=== PATIENT | male | born 1940 | race Caucasian/White ===

== ENCOUNTER → 2019-08-07 | Outpatient (CLI) | payer MEDICARE ==
--- NOTE | 2019-08-07 11:10 | MR ---
EXAMINATION TYPE: MR cervical spine wo con DATE OF EXAM: 08/07/2019 COMPARISON: None HISTORY: cervical disc degeneration TECHNIQUE: Multiplanar, multisequence images of the cervical spine were acquired. 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 C3-C4: Severe degenerative disc disease with broad-based disc herniation anterior compression of the spinal cord and significant canal stenosis. Facet arthropathy and uncovertebral joint hypertrophy con tribute to bilateral foraminal encroachment. C4-C5: Severe degenerative disc disease with broad-based disc protrusion encroaching upon the anterio r margin the spinal cord resulting in moderate canal stenosis. Facet arthropathy and uncovertebral jordin int hypertrophy greater on the right with moderate to severe right-sided foraminal encroachment. C5-C6: Central and right paracentral disc bulging with mild impression of thecal sac and mild central stenosis. Uncovertebral joint hypertrophy and facet arthropathy with mild bilateral foraminal encroa chment. C6-C7: Degenerative disc disease with broad-based central disc protrusion and mild effacement of thec al sac. There is encroachment upon the anterior margin the spinal cord but no displacement. Mild bila teral foraminal encroachment with uncovertebral joint hypertrophy greater on the left. Mild facet art hropathy. C7-T1: Broad-based central disc bulging greater paracentrally to left. Neural foramina patent. No Can al stenosis. Cervical segments are intact. There is normal alignment. Cervical spinal cord is of normal signal. Craniovertebral junction relationships are within normal limits. Subcentimeter thyroid nodules inci dentally noted. Shotty adenopathy in the soft tissues of the right neck. IMPRESSION: 1. Multilevel severe degenerative disc disease with facet arthropathy and multilevel canal stenosis. 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 This should be taken int o account prior to any surgical intervention. At the presumed C3-C4, C4-5, C5-6 and C6-C7 there is ce ntral disc herniations or protrusions with hypertrophic changes resulting in canal stenosis as discus sed above.
== END ==
LOC: RADMRIMAIN 09:05
PROVIDERS: ATTEND Internal Medicine Rheumatology
DX: M48.02 Spinal stenosis, cervical region (principal); M50.323 Other cervical disc degeneration at C6-C7 level; M46.92 Unspecified inflammatory spondylopathy, cervical region
CPT/HCPCS: 72141

== ENCOUNTER → 2019-08-14 | Outpatient (CLI) | payer MEDICARE ==
--- NOTE | 2019-08-14 20:17 | XR ---
EXAMINATION TYPE: XR bone survey complete DATE OF EXAM: 08/14/2019 COMPARISON: NONE HISTORY: Monoclonal gammopathy Frontal view of the chest, frontal and lateral views of the spine, frontal views of the proximal uppe r and lower extremities, 2 views of the calvarium submitted with a frontal view of the pelvis on a to alfonzo of 16 images Degenerative disc changes are noted in the visualized spine, facet arthropathy noted in the lumbar sp ine. There is a levoscoliosis centered at the mid lumbar spine, spinal curvature also noted in the th oracic spine. Bone mineralization is reduced which could limit sensitivity. Chest shows no acute card iopulmonary disease. Heart size may be slightly accentuated by rotation. No evident lytic lesions to suggest multiple myeloma. Chondrocalcinosis noted within the femoral head s. IMPRESSION: Osteopenia, degenerative disc disease and spinal curvature and additional findings above.
== END | disposition home or self-care (01) ==
LOC: RADXRMAIN 16:26
PROVIDERS: ATTEND Internal Medicine Hematology & Oncology
DX: M12.9 Arthropathy, unspecified (principal); M85.80 Other specified disorders of bone density and structure, unspecified site; M51.36 Other intervertebral disc degeneration, lumbar region; M46.96 Unspecified inflammatory spondylopathy, lumbar region; M41.86 Other forms of scoliosis, lumbar region; M11.259 Other chondrocalcinosis, unspecified hip; D47.2 Monoclonal gammopathy; N42.89 Other specified disorders of prostate
CPT/HCPCS: 77075

== ENCOUNTER → 2020-02-11 | Outpatient (CLI) | payer MEDICARE ==
[~2020-02-11] MED LIST: REGADENOSON 0.4 MG/5 ML SYRINGE IV ONE
--- NOTE | 2020-02-11 10:36 | NM ---
EXAMINATION TYPE: NM stress lexiscan cardiolite DATE OF EXAM: 02/11/2020 COMPARISON: NONE HISTORY: Abnormal EKG TECHNIQUE: After the intravenous administration of 9.45 mCi Tc 99m Sestamibi - Cardiolite resting SP ECT images acquired 50 minutes post injection. The patient received 0.4mg Lexiscan, 27 mCi Tc 99m Sestamibi - Stress images obtained 35 minutes post injection FINDINGS: Review of stress and rest SPECT images demonstrates no distinct perfusion abnormality. Gated analysi s shows normal wall motion with an estimated left ventricular ejection fraction of 64 %. IMPRESSION: No scintigraphic evidence for reversible ischemia.
--- NOTE | 2020-02-11 13:01 | EST ---
EXERCISE STRESS AGE: 79 SEX: M HT: 68" WT: 132 PROTOCOL: Lexiscan Cardiolite STAGE: DURATION OF EXERCISE: HEART RATE REST: 84 BLOOD PRESSURE REST: 142/76 MAXIMUM HEART RATE ACHIEVED: 99 MAXIMUM BLOOD PRESSURE: 162/87 85% MPHR: 119 100% MPHR: 146 METS: INDICATION: Preop cardiac evaluation. Baseline EKG shows sinus rhythm with nonspecific ST-T wave changes. Patient was given intravenous Lexiscan as per protocol. Did not have chest pain or diagnostic ST-segment depression. CONCLUSION: 1. Inconclusive EKG part of the stress test due to baseline EKG abnormalities. 2. Cardiolite portion of the stress test will be reported separately. MMODL / IJN: [id number] /
== END | disposition home or self-care (01) ==
LOC: RADNMMAIN 07:38
PROVIDERS: ATTEND Family Medicine
DX: R94.31 Abnormal electrocardiogram [ECG] [EKG] (principal)
CPT/HCPCS: 93017; 78452; A9500; J2785

== ENCOUNTER → 2020-03-17 | Outpatient (CLI) | payer MEDICARE ==
--- NOTE | 2020-03-18 14:15 | XR ---
Cervical spine HISTORY: Pain, cervical laminectomy 3 views of the cervical spine. Correlation MR cervical spine 08/07/2019 Mineralization is reduced. Multilevel spondylosis is present. Loss of disc height is present at inter vertebral levels. There is near anatomic alignment. Multilevel facet arthropathy changes present. Barraza inectomy changes are present at C3 and C4. Prevertebral soft tissues are within normal limits. C7-T1 not seen. Odontoid view is limited. IMPRESSION: Degenerative disc disease, osteopenia, facet arthropathy and postop changes. Neurosurgica l follow-up.
== END | disposition home or self-care (01) ==
LOC: RADXRMAIN 11:09
DX: M50.30 Other cervical disc degeneration, unspecified cervical region (principal); M47.812 Spondylosis without myelopathy or radiculopathy, cervical region; M85.80 Other specified disorders of bone density and structure, unspecified site; Z98.890 Other specified postprocedural states
CPT/HCPCS: 72040

== ENCOUNTER → 2020-04-01 | Outpatient (CLI) | payer MEDICARE ==
[2020-04-01 14:12] LABS: African American GFR (CKD) >90 (>60 ml/min/1.73 sqM); Blood Urea Nitrogen 18 mg/dL (9-20); Non-African American GFR(CKD) >90 (>60 ml/min/1.73 sqM)
--- NOTE | 2020-04-01 16:50 | CT ---
EXAMINATION TYPE: CT ChestAbdPelvis w con DATE OF EXAM: 04/01/2020 COMPARISON: None HISTORY: Abnormal weight loss. CT DLP: 495.2 mGycm Automated exposure control for dose reduction was used. CONTRAST: CT scan of the chest, abdomen and pelvis is performed with Oral Contrast and with IV Contrast, patien t injected with 100ml mL of Isovue 300. FINDINGS: LUNGS: The lungs are grossly clear, there is no concerning parenchymal mass or nodule identified. T here is no pleural effusion or pneumothorax seen. The tracheobronchial tree is patent. MEDIASTINUM: There are no greater than 1 cm hilar or mediastinal lymph nodes. No pericardial effusi on is seen. AORTA: Root of the aorta measures 4.1 cm, ascending aorta is 3.8 cm, proximal descending aorta 2.7 c m OTHER: Low dense focus noted within the right thyroid gland. LIVER/GB: No significant abnormality is appreciated. PANCREAS: No significant abnormality is seen. SPLEEN: No significant abnormality is seen. ADRENALS: No significant abnormality is seen. KIDNEYS: Low dense focus within the left kidney likely represents cortical cyst and is only approxima tely 1 cm in size. REPRODUCTIVE ORGANS: Prostate is enlarged and shows associated calcification. BOWEL: Colon shows wall thickening in the sigmoid, there is diverticular change, difficult to exclud e a mucosal lesion. Contrast has not coursed through the colon or proximal small bowel FREE AIR: No Free Air visible. ASCITES: None seen. RETROPERITONEAL ADENOPATHY: No retroperitoneal adenopathy is seen. LYMPH NODES: No greater than 1 cm abdominal or pelvic lymph nodes are appreciated. URINARY BLADDER: Thickening of the urinary bladder wall could be due to lack of distention or chroni c outlet obstruction, correlate to exclude cystitis. PELVIC ADENOPATHY: None visualized. OSSEOUS STRUCTURES: There is a spinal curvature present, degenerative disc changes are present visua lized spine, facet arthropathy noted especially in the lumbar spine.. 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 Indeterminate hypodensity right lobe of thyroid may represent thyroid nodule. Probable diverticulosis, difficult to exclude mucosal lesion. Prostate enla rgement as described
== END | disposition home or self-care (01) ==
LOC: RADCTMAIN 13:28
DX: N40.0 Benign prostatic hyperplasia without lower urinary tract symptoms (principal); R63.4 Abnormal weight loss
CPT/HCPCS: 82565; 84520; 71260; 74177; 36415; Q9967

== ENCOUNTER 2020-04-08 09:09 | Day surgery (SDC) | payer MEDICARE ==
[2020-04-04 09:55] VITALS: BMI 19.0
[~2020-04-08 09:09] MED LIST changes: +LACTATED RINGERS 1,000 ML IV SCH; -REGADENOSON 0.4 MG/5 ML SYRINGE IV ONE
[2020-04-08 09:40] VITALS: TEMP 97.2
[2020-04-08] MEDS ORDERED: PROPOFOL 10 MG/ML 20 ML VIAL IV ONE (10:16)
[2020-04-08 10:54] VITALS: RESP 16
--- NOTE | 2020-04-08 10:54 | P.PCN ---
Date of Procedure: 04/08/20 Description of Procedure: BRIEF HISTORY: Patient is a 79-year-old male presents for outpatient colonoscopy for evaluation of abnormal computed tomography scan abdomen. Patient had computed tomography scan of the abdomen in evaluation of unintentional weight loss. This was significant for thickening in the sigmoid colon with colonic mass, ruled out. PROCEDURE PERFORMED: Colonoscopy with polypectomy. PREOPERATIVE DIAGNOSIS: Abnormal computed tomography scan abdomen, last colonoscopy over 5 years ago. ESTIMATED BLOOD LOSS: Minimal. IV sedation per Anesthesia. PROCEDURE: After informed consent was obtained, the patient, was brought into the endoscopy unit. IV sedation was administered by Anesthesia under continuous monitoring. Digital rectal examination was normal. Initially the Olympus CF-190 flexible video colonoscope was then inserted in the rectum, gradually advanced into the cecum without any difficulty. Careful examination was performed as the scope was gradually being withdrawn. Ileocecal valve and the appendiceal orifice were visualized and appeared normal. Prep was excellent. Mucosa of the cecum, ascending colon, transverse colon, descending colon, sigmoid colon, and rectum appeared normal. 2 diminutive colon polyps measuring 1-2 mm in length were removed with cold forcep polypectomy from the descending colon and sigmoid colon. The terminal ileum was intubated and appeared normal. The patient had multiple small and large mouth diverticula in the sigmoid colon with associated tissue hypertrophy and thickening. No masses were noted. Retroflexion was performed in the rectum and no lesions were seen, low-grade internal hemorrhoids. The patient tolerated the procedure well. IMPRESSION: No colonic masses noted from rectum to cecum. 2 diminutive polyps removed from the descending colon and sigmoid colon with cold forceps. Severe moderate diverticulosis. Low-grade internal hemorrhoids. RECOMMENDATIONS: Findings of this examination were discussed with the patient. Okay to resume diet. Okay to resume medications. Await pathology from polypectomies. Continue further medical evaluation per primary team.
[2020-04-08] MEDS ORDERED: PROMETHAZINE INJ 6.25 MG in SODIUM CHLORIDE 0.9% 50 ML IVPB ONE (11:45)
[2020-04-08 11:52] VITALS: BP 146/83; PULSE 85
== END 2020-04-08 12:20 | disposition home or self-care (01) ==
LOC: ORWHC2ENDO 09:09
PROVIDERS: ATTEND Internal Medicine
DX: D12.5 Benign neoplasm of sigmoid colon (principal); D12.4 Benign neoplasm of descending colon; K57.30 Diverticulosis of large intestine without perforation or abscess without bleeding; K64.8 Other hemorrhoids; R63.4 Abnormal weight loss; Z87.891 Personal history of nicotine dependence; Z79.891 Long term (current) use of opiate analgesic; Z79.899 Other long term (current) drug therapy; Z98.890 Other specified postprocedural states; Z90.89 Acquired absence of other organs
CPT/HCPCS: 88305; 45380; J2704

== ENCOUNTER → 2020-04-17 | Outpatient (CLI) | payer MEDICARE ==
--- NOTE | 2020-04-17 23:34 | US ---
EXAMINATION TYPE: US thyroid st tissue head/neck DATE OF EXAM: 04/17/2020 COMPARISON: None CLINICAL HISTORY: 79-year-old male E04.1 Thyriod Nodule. Follow-up thyroid nodules TECHNIQUE: Multiple sonographic images of the thyroid gland are obtained. FINDINGS: GLAND SIZE: Right Lobe: 3.8 x 2.3 x 2.3 cm Overall Parenchyma: homogenous Left Lobe: 3.6 x 1.9 x 1.4 cm Overall Parenchyma: homogeneous Isthmus Thickness: 0.5 cm NODULES RIGHT: # of nodules measured on right: 1 1. 1.4 X 1.1 x 1.5 cm hypoechoic nodule at the mid pole with well-defined margins. This nodule is taller than wide and shows intranodular vascularity. Prior size: No prior LEFT: # of nodules measured on left: 1 1. 1.4 X 1.1 x 1.1 cm echogenic nodule at the upper pole with well-defined margins. This nodule is wide as tall and shows intranodular vascularity. Prior size: No prior ISTHMUS: # of nodules measured in the isthmus: 0 Bilateral neck scanned, no evidence of lymphadenopathy. IMPRESSION: 1. A taller than wide 1.5 cm solid nodule at the right midpole. FNA can be considered. 2. An additional solid vascular 1.4 cm nodule at the left upper pole. Follow up versus FNA.
== END | disposition home or self-care (01) ==
LOC: RADUSWWP 15:39
PROVIDERS: ATTEND Family Medicine
DX: E04.2 Nontoxic multinodular goiter (principal)
CPT/HCPCS: 76536

== ENCOUNTER → 2020-09-11 | Outpatient (CLI) | payer MEDICARE ==
--- NOTE | 2020-09-11 12:57 | CT ---
EXAMINATION TYPE: CT chest wo con DATE OF EXAM: 09/11/2020 COMPARISON: 04/01/2020 HISTORY: Thoracic aortic aneurysm, without rupture CT DLP: 178.5 mGycm. Automated Exposure Control for Dose Reduction was Utilized. TECHNIQUE: CT scan of the thorax is performed without IV contrast. FINDINGS: LUNGS: The lungs are grossly clear. There is no pleural effusion or pneumothorax seen. The tracheo bronchial tree is patent. Basilar bronchiectasis stable. 2 mm nodule peripheral margin right middle l obe axial image 35. Postinflammatory too small to characterize. Retrospectively stable. Likely benign . MEDIASTINUM: Lack of IV contrast is noted to limit evaluation for mediastinal and especially hilar ad enopathy. There are no definitive greater than 1 cm hilar or mediastinal lymph nodes. Root of the a liz measures 4.2 cm, ascending aorta is 3.8 cm, proximal descending aorta 2.7 cm . Global cardiomega ly again noted with the coronary artery calcification. OTHER: Hypertrophic and degenerative change of the spine. There are 2 less than 5 mm left renal calcu li which appear nonobstructing. There are numerous shotty lymph nodes within the left axilla which sh ould be correlated with an appear to be grossly similar in appearance to the prior exam is stable [facility] low density right thyroid nodule. IMPRESSION: 1. Minimal change in the ascending aortic aneurysm measuring 4.2 cm in greatest dimension and previou sly measuring 4.1 cm. 2. Coronary artery atherosclerotic changes. 3. Nonobstructing left renal calculi. 4. Extensive nonpathologic sized shotty adenopathy in the axilla on the left similar appearance to th e prior exam correlate clinically. 5. There is a 2 mm right middle lobe nodule axial image 35 stable from prior exam.
== END | disposition home or self-care (01) ==
LOC: RADCTMAIN 12:23
PROVIDERS: ATTEND Family Medicine
DX: I71.2 Thoracic aortic aneurysm, without rupture (principal); I25.10 Atherosclerotic heart disease of native coronary artery without angina pectoris; R59.9 Enlarged lymph nodes, unspecified; R91.1 Solitary pulmonary nodule
CPT/HCPCS: 71250

== ENCOUNTER → 2020-11-20 | Outpatient (CLI) | payer MEDICARE ==
--- NOTE | 2020-11-20 15:53 | US ---
EXAMINATION TYPE: US thyroid st tissue head/neck DATE OF EXAM: 11/20/2020 COMPARISON: NONE CLINICAL HISTORY: C73 Malignant neoplasm of thyroid gland. Right neck: 1.5 x 0.7 x 1.7cm lymph node seen lateral inferior to right thyroid lobe this is not enl arged by measurement criteria but appears to have a thickened cortex. Consider additional workup with CT neck. Left neck: appears wnl Patient status post thyroidectomy. No recurrent masses within the thyroid that are evident. IMPRESSION: 1. Somewhat prominent lymph node right lateral neck. Considers CT soft tissue neck for additional ambar luation. 2. No recurrent masses within the thyroid bed
== END ==
LOC: RADUSWWP 15:00
PROVIDERS: ATTEND Surgery
DX: R59.0 Localized enlarged lymph nodes (principal)
CPT/HCPCS: 76536

== ENCOUNTER → 2021-02-04 | Outpatient (CLI) | payer MEDICARE | END | disposition home or self-care (01) | LOC: LABWHC1 15:10 | PROVIDERS: ATTEND Internal Medicine Endocrinology, Diabetes & Metabolism | DX: C73 Malignant neoplasm of thyroid gland (principal) | CPT/HCPCS: 36415; 84432; 84443; 86800 ==

== ENCOUNTER → 2021-03-25 | Outpatient (CLI) | payer MEDICARE ==
[2021-03-25 21:19] LABS: Hemoglobin A1C 5.4 % (4.0-6.0)
== END | disposition home or self-care (01) ==
LOC: LABWHC1 12:41
PROVIDERS: ATTEND Family Medicine
DX: Z00.00 Encounter for general adult medical examination without abnormal findings (principal); Z79.899 Other long term (current) drug therapy
CPT/HCPCS: 36415; 83036; 83735

== ENCOUNTER → 2021-03-25 | Outpatient (CLI) | payer MEDICARE ==
[2021-03-25 13:54] LABS: Basophils # (A) 0.1 k/uL (0-0.2); Basophils % (A) 1 %; Eosinophils # (A) 0.2 k/uL (0-0.7); Eosinophils % (A) 4 %; HCT 35.8 % (39.0-53.0); HGB 10.7 gm/dL (13.0-17.5); Hypochromasia Moderate; Lymphocytes # (A) 1.4 k/uL (1.0-4.8); Lymphocytes % (A) 22 %; MCH 25.6 pg (25.0-35.0); MCHC 29.7 g/dL (31.0-37.0); MCV 86.1 fL (80.0-100.0); Monocytes # (A) 0.5 k/uL (0-1.0); Monocytes % (A) 7 %; Neutrophils # (A) 4.1 k/uL (1.3-7.7); Neutrophils % (A) 63 %; Platelet Count 345 k/uL (150-450); RBC 4.16 m/uL (4.30-5.90); RDW 15.8 % (11.5-15.5); WBC 6.5 k/uL (3.8-10.6)
[2021-03-25 14:01] LABS: Appearance,Urine Cloudy (Clear); Bilirubin,Urine Negative (Negative); Blood,Urine Moderate (Negative); Color,Urine Yellow; Glucose,Urine (UA) Negative (Negative); Hyaline Casts,Urine 3 /lpf (0-2); Ketones,Urine Negative (Negative); Leukocyte Esterase,Urine Large (Negative); Mucus,Urine Occasional /hpf; Nitrite,Urine Negative (Negative); Protein,Urine Trace (Negative); RBC,Urine 9 /hpf (0-5); Specific Gravity,Urine 1.021 (1.001-1.035); Squamous Epithelial Cell,Urine <1 /hpf (0-4); Urobilinogen,Urine <2.0 mg/dL (<2.0); WBC,Urine 108 /hpf (0-5)
[2021-03-25 14:03] LABS: INR 1.1 (<1.2); Partial Thromboplastin Time 29.2 sec (22.0-30.0); Prothrombin Time 11.4 sec (9.0-12.0)
[2021-03-25 14:17] LABS: ALT 14 U/L (4-49); AST 18 U/L (17-59); African American GFR (CKD) >90 (>60 ml/min/1.73 sqM); Albumin 3.5 g/dL (3.5-5.0); Alkaline Phosphatase 89 U/L (38-126); Anion Gap 6 mmol/L; Blood Urea Nitrogen 16 mg/dL (9-20); Calcium 8.7 mg/dL (8.4-10.2); Carbon Dioxide 28 mmol/L (22-30); Chloride 103 mmol/L (98-107); Glucose 132 mg/dL (74-99); Non-African American GFR(CKD) >90 (>60 ml/min/1.73 sqM); Potassium 4.4 mmol/L (3.5-5.1); Sodium 137 mmol/L (137-145); Total Bilirubin 0.5 mg/dL (0.2-1.3)
== END | disposition home or self-care (01) ==
LOC: LABPAT 12:37
PROVIDERS: ATTEND Orthopaedic Surgery
DX: Z01.812 Encounter for preprocedural laboratory examination (principal); N39.0 Urinary tract infection, site not specified
CPT/HCPCS: 80053; 81001; 85025; 85610; 85730; 87070; 87086

== ENCOUNTER → 2021-03-26 | Outpatient (CLI) | payer MEDICARE ==
[2021-03-27 01:15] LABS: Chol/HDL Ratio 3.73
== END | disposition home or self-care (01) ==
LOC: LABWHC1 10:40
PROVIDERS: ATTEND Family Medicine
DX: Z00.00 Encounter for general adult medical examination without abnormal findings (principal); Z79.899 Other long term (current) drug therapy
CPT/HCPCS: 36415; 80061

== ENCOUNTER 2021-03-30 04:09 | Emergency (ER) | payer MEDICARE ==
[2021-03-30 04:37] VITALS: BP 146/87; PULSE 88; RESP 18; TEMP 98.2
--- NOTE | 2021-03-30 04:57 | XR ---
EXAMINATION TYPE: XR Hip RT and AP Pelvis DATE OF EXAM: 03/30/2021 COMPARISON: NONE HISTORY: Fall. Pain. TECHNIQUE: 3 views FINDINGS: The pelvic ring is intact. Proximal right femur and hip joint appear normal. There is no si gn of hip dysplasia. Sacroiliac joints are intact. IMPRESSION: No acute abnormality of the pelvis and right hip.
--- NOTE | 2021-03-30 05:11 | ED ---
Fall HPI - General Chief Complaint: Fall Stated Complaint: Hip Pain Time Seen by Provider: 03/30/21 04:39 Source: patient Mode of arrival: wheelchair - History of Present Illness Initial Comments: This patient is an 80-year-old man who presents to be evaluated after he had a fall. Patient states that he was going up a step, his foot caught on it, and he fell landing on his right hip. Following that he had sharp pain when you try to get up or when he tried to move his right leg. Patient denies other injury. No head, neck, chest, back or abdomen pain. 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 Place Fall Occurred: home Loss of Consciousness: none Prolonged Down Time?: no Location - Extremities: Right: Leg Severity: moderate Quality: sharp Context: tripped/slipped Associated Symptoms: unable to walk - Related Data Home Medications Medication Instructions Recorded Confirmed Dutasteride [Avodart] 0.5 mg PO DAILY 04/04/20 04/04/20 Gabapentin [Neurontin] 300 mg PO HS 04/04/20 04/04/20 HYDROcodone/APAP 5-325MG [Red Jacket 1 tab PO Q6HR PRN 04/04/20 04/08/20 5-325] Multivitamins, Thera [Multivitamin 1 tab PO DAILY 04/04/20 04/04/20 (formulary)] methocarbamoL [Robaxin] 500 mg PO BID 04/04/20 04/04/20 Previous Rx's Medication Instructions Recorded HYDROcodone/APAP 5-325MG [Red [place]et 1 tab PO Q4HR PRN 3 Days #18 tab 03/30/21 5-325] Allergies Allergy/AdvReac Type Severity Reaction Status Date / Time No Known Allergies Allergy Verified 03/30/21 04:33 Review of Systems ROS Statement: Those systems with pertinent positive or pertinent negative responses have been documented in the HPI. ROS Other: All systems not noted in ROS Statement are negative. Constitutional: Denies: fever, chills Respiratory: Denies: cough, dyspnea Cardiovascular: Denies: chest pain, palpitations Gastrointestinal: Denies: abdominal pain, nausea, vomiting Genitourinary: Denies: hematuria Musculoskeletal: Reports: as per HPI, arthralgia. Denies: back pain Skin: Denies: rash Neurological: Denies: weakness, numbness, paresthesias Past Medical History Past Medical History: Osteoarthritis (OA), Prostate Disorder Additional Past Medical History / Comment(s): enlarged prostate, back pain History of Any Multi-Drug Resistant Organisms: None Reported Past Surgical History: Back Surgery, Orthopedic Surgery, Tonsillectomy Additional Past Surgical History / Comment(s): February 2020- back surgery to remove a piece of bone, [place] knee arthroscopy Past Anesthesia/Blood Transfusion Reactions: No Reported Reaction Past Psychological History: No Psychological Hx Reported Smoking Status: Never smoker Past Alcohol Use History: None Reported Past Drug Use History: None Reported - Past Family History Mother Family Medical History: No Reported History General Exam Limitations: physical limitation General appearance: alert, in no apparent distress Head exam: Present: atraumatic, normocephalic Eye exam: Present: normal appearance Respiratory exam: Present: normal lung sounds bilaterally. Absent: respiratory distress, wheezes, rales Cardiovascular Exam: Present: regular rate, normal rhythm, normal heart sounds GI/Abdominal exam: Present: soft. Absent: distended, tenderness, guarding, rebound Extremities exam: Present: normal inspection, tenderness, normal capillary refill. Absent: full ROM, pedal edema, calf tenderness Back exam: Present: normal inspection. Absent: CVA tenderness (R), CVA tenderness (L) Neurological exam: Present: alert Skin exam: Present: warm, dry, intact, normal color. Absent: rash Course Vital Signs 03/30/21 04:33 Temperature 98.2 F Pulse Rate 88 Respiratory 18 Rate Blood Pressure 146/87 O2 Sat by Pulse 99 Oximetry Disposition Clinical Impression: Fall, Fracture of pubic ramus Disposition: HOME SELF-CARE Condition: Good Instructions (If sedation given, give patient instructions): Fall Prevention (ED), Pelvic Fracture (ED) Prescriptions: HYDROcodone/APAP 5-325MG [Red Jacket 5-325] 1 tab PO Q4HR PRN 3 Days #18 tab PRN Reason: Pain Is patient prescribed a controlled substance at d/c from ED?: Yes When asked, does pt state using other controlled substances?: Yes If prescribed controlled substance>3 days was MAPS reviewed?: Prescribed <3 Days If opioid is for acute pain is fill amount 7 days or less?: Yes If Rx opioid, was Start Talking consent form obtained?: Yes Referrals: Luisa Ybarra MD [Primary Care Provider] - 1-2 days
--- NOTE | 2021-03-30 06:40 | CT ---
EXAMINATION TYPE: CT hip RT wo con DATE OF EXAM: 03/30/2021 COMPARISON: CT abdomen pelvis 04/01/2020 HISTORY: pain CT DLP: 365.8 mGycm Automated exposure control for dose reduction was used. Images were obtained from the mid ileum to the mid shaft of the femur without contrast. There is a hairline fracture of the right superior pubic ramus. There is oblique fracture minimal dis placement of the inferior pubic ramus on the right side. The acetabulum is intact. The proximal femur is intact. Hip joint space is fairly normal. I see no focal bone destruction. There is no evidence o f a soft tissue mass. Bladder distends smoothly. Prostate is enlarged and measures 5.7 cm. IMPRESSION: Nondisplaced acute fractures of the right superior and inferior pubic rami. No femur or acetabular fr acture seen.
== END 2021-03-30 07:15 | disposition home or self-care (01) ==
LOC: EC 04:09
DX: S32.511A Fracture of superior rim of right pubis, initial encounter for closed fracture (principal); S32.591A Other specified fracture of right pubis, initial encounter for closed fracture; N40.0 Benign prostatic hyperplasia without lower urinary tract symptoms; W01.0XXA Fall on same level from slipping, tripping and stumbling without subsequent striking against object, initial encounter; Y92.009 Unspecified place in unspecified non-institutional (private) residence as the place of occurrence of the external cause
CPT/HCPCS: 73502; 99284

== ENCOUNTER → 2021-04-30 | Outpatient (CLI) | payer MEDICARE | END | disposition home or self-care (01) | LOC: LABWHC1 14:51 | PROVIDERS: ATTEND Internal Medicine Endocrinology, Diabetes & Metabolism | DX: C73 Malignant neoplasm of thyroid gland (principal) | CPT/HCPCS: 36415; 84432; 84443; 86800 ==

== ENCOUNTER → 2021-06-19 | Outpatient (CLI) | payer MEDICARE | END | disposition home or self-care (01) | LOC: LABWHC1 15:59 | PROVIDERS: ATTEND Internal Medicine Endocrinology, Diabetes & Metabolism | DX: C73 Malignant neoplasm of thyroid gland (principal) | CPT/HCPCS: 36415; 84432; 84443; 86800 ==

== ENCOUNTER → 2021-07-16 | Outpatient (CLI) | payer MEDICARE ==
[2021-07-16 11:31] LABS: HCT 38.1 % (39.0-53.0); HGB 11.9 gm/dL (13.0-17.5); Hypochromasia Slight; MCH 26.5 pg (25.0-35.0); MCHC 31.3 g/dL (31.0-37.0); MCV 84.7 fL (80.0-100.0); Mean Platelet Volume 6.3; Platelet Count 333 k/uL (150-450); RDW 15.3 % (11.5-15.5); WBC 8.5 k/uL (3.8-10.6)
[2021-07-16 11:34] LABS: INR 1.1 (<1.2); Prothrombin Time 11.5 sec (9.0-12.0)
[2021-07-16 11:35] LABS: ALT 14 U/L (4-49); AST 18 U/L (17-59); African American GFR (CKD) >90 (>60 ml/min/1.73 sqM); Albumin 3.4 g/dL (3.5-5.0); Alkaline Phosphatase 96 U/L (38-126); Anion Gap 9 mmol/L; Blood Urea Nitrogen 17 mg/dL (9-20); Calcium 9.2 mg/dL (8.4-10.2); Carbon Dioxide 27 mmol/L (22-30); Chloride 104 mmol/L (98-107); Glucose 142 mg/dL (74-99); Non-African American GFR(CKD) 90 (>60 ml/min/1.73 sqM); Potassium 4.7 mmol/L (3.5-5.1); Sodium 140 mmol/L (137-145); Total Protein 7.4 g/dL (6.3-8.2)
[2021-07-16 12:08] LABS: Appearance,Urine Clear (Clear); Bacteria,Urine Rare /hpf; Bilirubin,Urine Negative (Negative); Blood,Urine Small (Negative); Color,Urine Yellow; Glucose,Urine (UA) Negative (Negative); Ketones,Urine Negative (Negative); Leukocyte Esterase,Urine Small (Negative); Mucus,Urine Occasional /hpf; Nitrite,Urine Negative (Negative); Protein,Urine Trace (Negative); RBC,Urine 3 /hpf (0-5); Specific Gravity,Urine 1.026 (1.001-1.035); Urobilinogen,Urine <2.0 mg/dL (<2.0); WBC,Urine 8 /hpf (0-5)
== END | disposition home or self-care (01) ==
LOC: LABPAT 10:10
PROVIDERS: ATTEND Orthopaedic Surgery
DX: Z01.812 Encounter for preprocedural laboratory examination (principal); M16.11 Unilateral primary osteoarthritis, right hip
CPT/HCPCS: 80053; 81001; 85027; 85610; 85730; 87070

== ENCOUNTER 2021-08-11 11:42 | Day surgery (SDC) | payer MEDICARE ==
[2021-08-06 15:36] VITALS: BMI 19.0
[~2021-08-11 11:42] MED LIST changes: +ACETAMINOPHEN TAB 500 MG TAB PO PRN; +GABAPENTIN 300 MG CAP PO PRN; +HYDROmorphone 0.5 MG/0.5 ML SYRINGE IVP PRN; +MELOXICAM 7.5 MG TAB PO PRN; +ONDANSETRON 4 MG/2 ML VIAL IVP ONE; +TRANEXAMIC ACID 1,000 MG in SODIUM CHLORIDE 0.9% 100 ML IVPB PRN
[2021-08-11] MEDS ORDERED: HYDROmorphone 0.5 MG/0.5 ML SYRINGE IVP PRN ×2 (12:32)
[2021-08-11] MEDS ORDERED: ONDANSETRON 4 MG/2 ML VIAL IVP PRN (12:32)
[2021-08-11] MEDS ORDERED: HYDROmorphone 0.2 MG/1 ML SYRINGE IVP PRN (12:32)
[2021-08-11] MEDS ORDERED: HYDROcodone/APAP 7.5-325MG 1 EACH TAB PO PRN ×2 (12:34)
[2021-08-11] MEDS ORDERED: SODIUM CHLORIDE 0.9% 1,000 ML IV SCH (12:45)
[2021-08-11] MEDS ORDERED: DEXAMETHASONE SOD PHOSPHATE 4 MG/ML 1 ML VIAL IVP ONE (12:45)
[2021-08-11] MEDS ORDERED: MIDAZOLAM 2 MG/2 ML VIAL IVP ONE (12:59)
[2021-08-11] MEDS ORDERED: ROCURONIUM 10 MG/ML (5 ML VIAL) IV ONE (13:47)
[2021-08-11] MEDS ORDERED: NEOSTIGMINE 1 MG/ML 10 ML VIAL ONE (13:47)
[2021-08-11] MEDS ORDERED: TRANEXAMIC ACID 1,000 MG/10 ML VIAL ONE (13:47)
[2021-08-11] MEDS ORDERED: GLYCOPYRROLATE 0.2 MG/ML 2 ML VIAL ONE (13:47)
[2021-08-11] MEDS ORDERED: PHENYLEPHRINE-0.9% NACL SYG 1,000 MCG/10 ML SYRINGE ONE (13:47)
[2021-08-11] MEDS ORDERED: ROPIVACAINE 5 MG/ML 30 ML VIAL ONE (13:47)
[2021-08-11] MEDS ORDERED: MIDAZOLAM 2 MG/2 ML VIAL ONE (13:47)
[2021-08-11] MEDS ORDERED: ePHEDrine 50 MG/ML 1 ML AMP ONE (13:47)
[2021-08-11] MEDS ORDERED: SUCCINYLCHOLINE CHLORIDE 100 MG/5 ML SYR IV ONE (13:47)
[2021-08-11] MEDS ORDERED: LIDOCAINE 1% INJ 10MG/ML (20 ML MDV) ONE (13:47)
[2021-08-11] MEDS ORDERED: SODIUM CHLORIDE 0.9% 100 ML BAG ONE (13:47)
[2021-08-11] MEDS ORDERED: PROPOFOL 10 MG/ML 20 ML VIAL IV ONE (13:47)
[2021-08-11] MEDS ORDERED: LACTATED RINGERS 1,000 ML IV ONE (15:03)
--- NOTE | 2021-08-11 15:05 | P.ANPRN ---
Procedure Note - Anesthesia - Nerve Block Performed Right Interscalene Single Time Out Performed: Yes ([id number]) Date of Procedure: 08/11/21 Procedure Start Time: 12:59 Procedure Stop Time: 13:04 Location of Patient: PreOp Indication: Acute Post-Operative Pain, Requested by Surgeon Specifically requested for management of pain by DrBrittany: Phill Zarate Sedation Type: Sedate with meaningful contact maintained Preparation: Sterile Prep Position: Supine Catheter: None Needle Types: Pajunk Needle Gauge: 21 Ultrasound used to visualize needle placement: Yes Ultrasound used to observe medication spread: Yes Injectate: 0.5% Ropivacaine (see comment for volume) (30cc) Blood Aspirated: No Pain Paresthesia on Injection Noted: No Resistance on Injection: Normal Image Stored and Saved: Yes Events: Uneventful and Well Tolerated
--- NOTE | 2021-08-11 15:07 | P.OP ---
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 Biomet comprehensive reverse shoulder system, humeral bearing, 36 mm, standard Biomet comprehensive reverse shoulder system, mini humeral tray, 40 mm, +0, standard Biomet comprehensive reverse shoulder, Glenosphere mini baseplate, 25 mm Biomet comprehensive reverse shoulder, central screw, 6.5 mm x 25 mm Biomet comprehensive reverse shoulder, fixed locking screw, 4.75 x 20 mm, 15 mm, 15 mm, 20 mm. Biomet comprehensive reverse shoulder glenosphere, 36 mm, standard All components were press-fit. Articulation is metal on polyethylene.Articulation is metal on polyethylene. Anesthesia: GETA Surgeon: Phill [employer] Director #1: Selene Majano Estimated Blood Loss (ml): 30 Pathology: other (Humeral head) Condition: stable Disposition: PACU Indications for Procedure: This is a patient that presented to my office with severe pain in the shoulder. X-rays demonstrated severe osteoarthritis of the glenohumeral joint of her shoulder. After failure of conservative treatment, we discussed the surgical and nonsurgical treatment options at length. The patient wishes to proceed with a reverse total shoulder arthroplasty. Patient is aware of the complications of the procedure which include but are not limited to infection, hardware failure, persistent pain, dislocation, and nerve injury. Informed consent was obtained. Operative Findings: The operative findings are consistent with severe osteoarthritis of the right shoulder with chronic rotator cuff deficiency Description of Procedure: The patient was seen in the preoperative area, consent was reviewed, and operative site was marked with a skin marker. Patient was then brought to the operating room and given preoperative antibiotics intravenously. Patient was also given 1 g of Tranexamic acid intravenously. A general anesthetic was administered by the anesthesia department. A Bee catheter was placed by the nursing staff. The patient was then placed in a beachchair position with the bony prominences well-padded and the head secured. The shoulder was then prepped and draped in the usual sterile fashion. A universal timeout was then performed, which confirmed the patient's name, surgical site, ALLERGIES, and consent. A standard deltopectoral approach was performed. The skin and subcutaneous tissue was sharply dissected down to the deltoid fascia. The cephalic vein was then identified and retracted medially. The deltopectoral interval was then utilized to expose the subscapularis tendon. A retractor was then placed under the coracobrachialis tendon retracted medially, and the deltoid. The axillary nerve is palpated and protected throughout the procedure. The subscapularis tendon was then released and retracted medially. The humeral head was then exposed easily. The rotator cuff tendon was found to be completely torn and retracted. After the humeral head was exposed, osteophytes were removed with a Ronguer. Next the humeral stem was prepared. A starter reamer was then placed through the humeral head along the axis of the humeral shaft just lateral to the articular surface and just medial to the rotator cuff attachment. Sequential reaming was performed to the appropriate size reamer was inserted to the #between the 3 and 4 on the reamer. Next the intramedullary resection guide was placed on the reamer shaft. It was placed to the appropriate resection depth and angle of 30 of retroversion. Resection guide block was then secured with Steinmann pins. The proximal humerus was then resected. The block was then removed and the humerus was then broached sequentially to the same size as the reamer. After the broaches fully seated, the broach handle was removed and a broach cover was placed protect the humerus while the glenoid was prepared. Next attention was directed to the glenoid. The appropriate retractors were placed around the glenoid and any remaining soft tissues was removed from around the glenoid. After the glenoid was adequately exposed, the threaded glenoid guide was placed onto the glenoid and a 3.2 mm Steinmann pin was inserted in the glenoid at the desired angle and position, ensuring the pin engaged medial cortical wall. Next, the cannulated baseplate reamer was placed over the top of the Steinmann pin. The glenoid was then reamed to the appropriate depth. The glenoid reamer was then removed, leaving the Steinmann pin. The glenoid Pepe king te implant was placed on the end of the cannulated baseplate impactor. The baseplate was then impacted fully into the glenoid. Next the 6.5 mm central screw was then placed which afforded excellent fixation. The 4 peripheral locking screws were then drilled measured and placed. Next the appropriate glenosphere was opened and impacted into the glenoid baseplate. Attention was then redirected to the humerus. Next a trial humeral tray was placed in the shoulder was reduced. Shoulder was taken through a full range of motion and found to be stable. The shoulder was then gently dislocated, and the trial humerus and humeral tray were removed. The final humeral stem was impacted in the final humeral tray was impacted as well. Shoulder was then relocated. Again the shoulder was taken through a range of motion and found to have no instability. Shoulder was then irrigated with pulsatile lavage. A second dose of 1 g of Tranexamic acid was given. The subcutaneous tissues were closed with 3-0 Vicryl followed by 3-0 strata fix. Exofin skin glue was placed on the skin. A sterile dressing was then applied, the patient was transported to the recovery room in an arm sling in stable condition. The pathology assistant GARCIA Morris was required due the complexity of surgery and the need for a skilled surgical specialist.
[2021-08-11 15:44] VITALS: RESP 16; TEMP 98
--- NOTE | 2021-08-11 16:04 | XR ---
EXAMINATION TYPE: XR shoulder limited RT DATE OF EXAM: 08/11/2021 COMPARISON: NONE TECHNIQUE: Two views submitted HISTORY: Post op FINDINGS: There is a prosthetic shoulder in near anatomic alignment. There is soft tissue edema and emphysema. IMPRESSION: 1. Postoperative change. Appears in near-anatomic alignment
[2021-08-11 17:16] VITALS: BP 119/61; PULSE 78
== END 2021-08-11 18:09 | disposition home or self-care (01) ==
LOC: OR 11:42
PROVIDERS: ATTEND Orthopaedic Surgery
DX: M75.101 Unspecified rotator cuff tear or rupture of right shoulder, not specified as traumatic (principal); M19.011 Primary osteoarthritis, right shoulder; N40.0 Benign prostatic hyperplasia without lower urinary tract symptoms; Z79.899 Other long term (current) drug therapy; Z85.850 Personal history of malignant neoplasm of thyroid
CPT/HCPCS: 64415; 76942; 87635; 73020; 23474; C1776; J2250; J1100; J0690; J2405; 88305; 88311

== ENCOUNTER → 2022-02-08 | Outpatient (CLI) | payer MEDICARE ==
--- NOTE | 2022-02-08 16:02 | US ---
EXAMINATION TYPE: US thyroid st tissue head/neck DATE OF EXAM: 02/08/2022 COMPARISON: 11/20/2020 CLINICAL HISTORY: 81-year-old male C73 MALIGNANT NEOPLASM OF THYROID GLAND. History of thyroid CA, pt states having thyroid removed approx 6 months ago Technique: Bilateral neck scan. FINDINGS: THE No evidence of lymphadenopathy. Bilateral thyroidectomy bed appeared wnl. IMPRESSION: The thyroid bed appears clear. No suspicious lymphadenopathy seen in the neck.
== END | disposition home or self-care (01) ==
LOC: RADUSWWP 15:42
PROVIDERS: ATTEND Internal Medicine Endocrinology, Diabetes & Metabolism
DX: C73 Malignant neoplasm of thyroid gland (principal)
CPT/HCPCS: 76536

== ENCOUNTER 2022-03-17 08:17 | Emergency (ER) | payer MEDICARE ==
[2022-03-17] MEDS ORDERED: ACETAMINOPHEN TAB 325 MG TAB PO STA (08:38)
--- NOTE | 2022-03-17 08:38 | ED ---
General Adult HPI - General Stated complaint: Wants COVID test Time Seen by Provider: 03/17/22 08:19 Source: patient, RN notes reviewed Mode of arrival: ambulatory Limitations: no limitations - History of Present Illness Initial comments: This an 81-year-old male presents emergency Department chief complaint of wanting COVID-19 testing. Patient is tested positive today patient does admit that he's had RSV cough, sore throat for last 2 days she does have low- grade temp. Denies any shortness breath no significant headache, dizziness, chest pain nausea vomiting diarrhea constipation. - Related Data Home Medications Medication Instructions Recorded Confirmed Dutasteride [Avodart] 0.5 mg PO DAILY 04/04/20 08/11/21 Gabapentin [Neurontin] 300 mg PO HS 04/04/20 08/11/21 Multivitamins, Thera [Multivitamin 1 tab PO DAILY 04/04/20 08/11/21 (formulary)] Calcium Carbonate [Calcium] 600 mg PO DAILY 03/30/21 08/11/21 Celecoxib [CeleBREX] 200 mg PO DAILY@1400 03/30/21 08/11/21 Tamsulosin [Flomax] 0.4 mg PO HS 03/30/21 08/11/21 traMADol HCL 50 mg PO DAILY 03/30/21 08/11/21 Levothyroxine Sodium [Synthroid] 100 mcg PO DAILY 08/06/21 08/11/21 Previous Rx's Medication Instructions Recorded HYDROcodone/APAP 7.5-325MG [[place] 1 - 2 tab PO Q6H PRN #32 tab 08/11/21 7.5-325] Ondansetron Odt [Zofran Odt] 1 tab PO Q8HR PRN #10 tab 08/11/21 Sennosides [Senokot] 2 tab PO DAILY PRN #60 tablet 08/11/21 Allergies Allergy/AdvReac Type Severity Reaction Status Date / Time No Known Allergies Allergy Verified 03/17/22 08:34 Review of Systems ROS Statement: Those systems with pertinent positive or pertinent negative responses have been documented in the HPI. ROS Other: All systems not noted in ROS Statement are negative. Past Medical History Past Medical History: Osteoarthritis (OA), Prostate Disorder Additional Past Medical History / Comment(s): enlarged prostate, back pain History of Any Multi-Drug Resistant Organisms: None Reported Past Surgical History: Back Surgery, Orthopedic Surgery, Tonsillectomy Additional Past Surgical History / Comment(s): February 2020- back surgery to remove a piece of bone, [place] knee arthroscopy Past Anesthesia/Blood Transfusion Reactions: No Reported Reaction Past Psychological History: No Psychological Hx Reported Smoking Status: Never smoker - Past Family History Mother Family Medical History: No Reported History General Exam Limitations: no limitations General appearance: alert, in no apparent distress Head exam: Present: atraumatic, normocephalic, normal inspection Eye exam: Present: normal appearance, PERRL, EOMI. Absent: scleral icterus, conjunctival injection, periorbital swelling ENT exam: Present: normal exam, normal oropharynx, mucous membranes moist Neck exam: Present: normal inspection, full ROM. Absent: tenderness, meningismus, lymphadenopathy Respiratory exam: Present: normal lung sounds bilaterally. Absent: respiratory distress, wheezes, rales, rhonchi, stridor Cardiovascular Exam: Present: normal rhythm, tachycardia, normal heart sounds. Absent: systolic murmur, diastolic murmur, rubs, gallop, clicks GI/Abdominal exam: Present: soft, normal bowel sounds. Absent: distended, tenderness, guarding, rebound, rigid Course Vital Signs 03/17/22 03/17/22 08:31 10:01 Temperature 99.8 F H 99.3 F Pulse Rate 102 H 82 Respiratory 18 16 Rate Blood Pressure 146/72 114/74 O2 Sat by Pulse 98 98 Oximetry Medical Decision Making - Medical Decision Making Patient is positive for COVID-19. Patient did receive Monck lying otherwise will be discharged in stable condition return parameters were discussed. - Lab Data Lab Results 03/17/22 Range/Units 08:37 Coronavirus (PCR) Detected A (Not Detectd) Disposition Clinical Impression: COVID-19 Disposition: HOME SELF-CARE Condition: Stable Instructions (If sedation given, give patient instructions): COVID-19 (Coronavirus Disease 2019) (ED) Additional Instructions: Please return to the Emergency Department if symptoms worsen or any other concerns. Is patient prescribed a controlled substance at d/c from ED?: No Referrals: Luis Zavaleta MD [Primary Care Provider] - 1-2 days Time of Disposition: 10:04
[2022-03-17] MEDS ORDERED: BEBTELOVIMAB (EUA) 175 MG/2 ML VIAL IV ONE (09:45)
[2022-03-17 10:02] VITALS: BP 114/74; PULSE 82; RESP 16; TEMP 99.3
== END 2022-03-17 10:59 | disposition home or self-care (01) ==
LOC: EC 08:17
DX: U07.1 COVID-19 (principal)
CPT/HCPCS: 87635; 99284; Q0222

== ENCOUNTER → 2022-04-14 | Outpatient (CLI) | payer MEDICARE | END | disposition home or self-care (01) | LOC: LABWHC1 12:48 | PROVIDERS: ATTEND Internal Medicine Endocrinology, Diabetes & Metabolism | DX: C73 Malignant neoplasm of thyroid gland (principal) | CPT/HCPCS: 36415; 84432; 84443; 86800 ==

== ENCOUNTER → 2022-04-30 | Outpatient (CLI) | payer MEDICARE ==
--- NOTE | 2022-04-30 21:13 | US ---
EXAMINATION TYPE: US thyroid st tissue head/neck DATE OF EXAM: 04/30/2022 COMPARISON: US CLINICAL HISTORY: C73 thyroid ca. Thyroid CA, thyroidectomy GLAND SIZE: Right Lobe: Surgically absent Left Lobe: Surgically absent Isthmus Thickness: Surgically absent Bilateral neck scanned, no evidence of lymphadenopathy. Bilateral thyroidectomy bed appeared wnl, sim ilar to prior exam. IMPRESSION: Bilateral thyroidectomy without evidence for recurrence or suspicious mass. No remaining thyroid tiss ue evident.
== END | disposition home or self-care (01) ==
LOC: RADUSWWP 16:23
PROVIDERS: ATTEND Internal Medicine Endocrinology, Diabetes & Metabolism
DX: C73 Malignant neoplasm of thyroid gland (principal)
CPT/HCPCS: 76536

== ENCOUNTER 2023-04-27 09:31 | Inpatient (IN) | payer MEDICARE ==
[2023-04-27] MEDS ORDERED: KETOROLAC 15 MG/ML 1 ML VIAL IM STA (10:37)
--- NOTE | 2023-04-27 10:39 | ED ---
Fall HPI - General Chief Complaint: Fall Stated Complaint: Fall,L Rib pain/no Thinners 3-4ft fall Time Seen by Provider: 04/27/23 10:08 Source: patient Mode of arrival: wheelchair - History of Present Illness Initial Comments: 82-year-old male presenting to the ED with a chief complaint of rib pain. Patient states 4 days ago was filling up his truck at the gas station when he a ccidentally stepped on the hose causing him to trip and fall. Patient states that he fell onto the metal guard rail landing the left side of his chest. Did not hit his head at this time. No LOC. Denies then, patient reports left sided chest pain worse with movement, coughing, and deep breath. Denies any other injuries at this time. Denies shortness of breath. No other complaints. - Related Data Home Medications Medication Instructions Recorded Confirmed Dutasteride [Avodart] 0.5 mg PO DAILY 04/04/20 08/11/21 Gabapentin [Neurontin] 300 mg PO HS 04/04/20 08/11/21 Multivitamins, Thera [Multivitamin 1 tab PO DAILY 04/04/20 08/11/21 (formulary)] Calcium Carbonate [Calcium] 600 mg PO DAILY 03/30/21 08/11/21 Celecoxib [CeleBREX] 200 mg PO DAILY@1400 03/30/21 08/11/21 Tamsulosin [Flomax] 0.4 mg PO HS 03/30/21 08/11/21 traMADol HCL 50 mg PO DAILY 03/30/21 08/11/21 Levothyroxine Sodium [Synthroid] 100 mcg PO DAILY 08/06/21 08/11/21 Previous Rx's Medication Instructions Recorded HYDROcodone/APAP 7.5-325MG [[place] 1 - 2 tab PO Q6H PRN #32 tab 08/11/21 7.5-325] Ondansetron Odt [Zofran Odt] 1 tab PO Q8HR PRN #10 tab 08/11/21 Sennosides [Senokot] 2 tab PO DAILY PRN #60 tablet 08/11/21 Allergies Allergy/AdvReac Type Severity Reaction Status Date / Time No Known Allergies Allergy Verified 04/27/23 09:41 Review of Systems ROS Statement: Those systems with pertinent positive or pertinent negative responses have been documented in the HPI. ROS Other: All systems not noted in ROS Statement are negative. Past Medical History Past Medical History: Osteoarthritis (OA), Prostate Disorder Additional Past Medical History / Comment(s): enlarged prostate, back pain History of Any Multi-Drug Resistant Organisms: None Reported Past Surgical History: Back Surgery, Orthopedic Surgery, Tonsillectomy Additional Past Surgical History / Comment(s): February 2020- back surgery to remove a piece of bone, [place] knee arthroscopy Past Anesthesia/Blood Transfusion Reactions: No Reported Reaction Past Psychological History: No Psychological Hx Reported Smoking Status: Never smoker Past Alcohol Use History: Rare Past Drug Use History: None Reported - Past Family History Mother Family Medical History: No Reported History General Exam Limitations: no limitations General appearance: alert, in no apparent distress Eye exam: Present: normal appearance Neck exam: Present: normal inspection Respiratory exam: Present: normal lung sounds bilaterally, other (Left lower chest wall tenderness to palpation.) Cardiovascular Exam: Present: regular rate, normal rhythm Extremities exam: Present: normal inspection Neurological exam: Present: alert, oriented X3 Skin exam: Present: warm, dry Course Vital Signs 04/27/23 09:37 Temperature 98.0 F Pulse Rate 60 Respiratory 18 Rate Blood Pressure 124/65 O2 Sat by Pulse 97 Oximetry Medical Decision Making - Medical Decision Making Was pt. sent in by a medical professional or institution (GARCIA Dunlap, DIRECTOR OF FINANCE, urgent care, hospital, or alf...) When possible be specific @ -No Did you speak to anyone other than the patient for history (EMS, parent, family, police, friend...)? What history was obtained from this source @ -No Did you review nursing and triage notes (agree or disagree)? Why? @ -I reviewed and agree with nursing and triage notes Were old charts reviewed (outside hosp., previous admission, EMS record, old EKG, old radiological studies, urgent care reports/EKG's, alf records)? Report findings @ -No old charts were reviewed Differential Diagnosis (chest pain, altered mental status, abdominal pain women, abdominal pain men, vaginal bleeding, weakness, fever, dyspnea, syncope, headache, dizziness, GI bleed, back pain, seizure, CVA, palpatations, mental health, musculoskeletal)? @ -not applicable EKG interpreted by me (3pts min.). @ -Pending X-rays interpreted by me (1pt min.). @ -None done CT interpreted by me (1pt min.). @ -Computed tomography scan interpreted by me. CT of the abdomen and pelvis showed displaced fractures of the left seventh, eighth, ninth, 10th rib with small pleural effusion possibly representing hemothorax. U/S interpreted by me (1pt. min.). @ -None done What testing was considered but not performed or refused? (CT, X-rays, U/S, labs)? Why? @ -None What meds were considered but not given or refused? Why? @ -None Did you discuss the management of the patient with other professionals (blanca lucero i.e. , PA, DIRECTOR OF FINANCE, lab, RT, psych nurse, social group worker, metals sales representative, teacher, humane officer, patient case manager)? Give summary @ -Case discussed with Dr. Kwok of surgery who accepts admission of the patient. Was smoking cessation discussed for >3mins.? @ -No Was critical care preformed (if so, how long)? @ -No Were there social determinants of health that impacted care today? How? ( Homelessness, low income, unemployed, alcoholism, drug addiction, transportation, low edu. Level, literacy, decrease access to med. care, long term, rehab)? @ -No Was there de-escalation of care discussed even if they declined (Discuss DNR or withdrawal of care, Hospice)? DNR status @ -No What co-morbidities impacted this encounter? (DM, HTN, Smoking, COPD, CAD, Cancer, CVA, ARF, Chemo, Hep., AIDS, mental health diagnosis, sleep apnea, morbid obesity)? @ -None Was patient admitted / discharged? Hospital course, mention meds given and route, prescriptions, significant lab abnormalities, going to OR and other pertinent info. @ -Admission. CT abdomen and pelvis showed fractures of the left seventh, eighth, ninth, 10th rib possible hemothorax. At this time patient is not having any dyspnea and complains of minimal pain. Patient will be admitted to trauma with consults to anesthesia and pulmonology. Discussed plan of care with patient and family who are in agreement. Undiagnosed new problem with uncertain prognosis? @ -No Drug Therapy requiring intensive monitoring for toxicity (Heparin, Nitro, Insu sebas, Cardizem)? @ -No Were any procedures done? @ -No Diagnosis/symptom? @ -Multiple rib fractures, seventh, eighth, ninth, and 10th Acute, or Chronic, or Acute on Chronic? @ -Acute Uncomplicated (without systemic symptoms) or Complicated (systemic symptoms)? @ -Uncomplicated Side effects of treatment? @ -No Exacerbation, Progression, or Severe Exacerbation? @ -No Poses a threat to life or bodily function? How? (Chest pain, [place], VA, pneumonia, PE, COPD, DKA, ARF, appy, cholecystitis, CVA, Diverticulitis, Homicidal, Suicidal, threat to staff... and all critical care pts) @ -No - Lab Data Result diagrams: 04/27/23 12:22 04/27/23 12:22 Lab Results 04/27/23 04/27/23 04/27/23 Range/Units 12:22 12:22 12:22 WBC 8.2 (3.8-10.6) k/uL RBC 4.47 (4.30-5.90) m/uL Hgb 12.0 L (13.0-17.5) gm/dL Hct 38.5 L (39.0-53.0) % MCV 86.1 (80.0-100.0) fL MCH 26.8 (25.0-35.0) pg MCHC 31.2 (31.0-37.0) g/dL RDW 15.6 H (11.5-15.5) % Plt Count 316 (150-450) k/uL MPV 7.2 Neutrophils % 62 % Lymphocytes % 26 % Monocytes % 4 % Eosinophils % 5 % Basophils % 1 % Neutrophils # 5.0 (1.3-7.7) k/uL Lymphocytes # 2.1 (1.0-4.8) k/uL Monocytes # 0.4 (0-1.0) k/uL Eosinophils # 0.4 (0-0.7) k/uL Basophils # 0.1 (0-0.2) k/uL Hypochromasia Moderate PT 10.7 (9.0-12.0) sec INR 1.0 (<1.2) APTT 28.7 (22.0-30.0) sec Sodium 138 (137-145) mmol/L Potassium 4.6 (3.5-5.1) mmol/L Chloride 106 (98-107) mmol/L Carbon Dioxide 21 L (22-30) mmol/L Anion Gap 11 mmol/L BUN 21 H (9-20) mg/dL Creatinine 0.85 (0.66-1.25) mg/dL Est GFR (CKD-EPI)AfAm >90 (>60 ml/min/1.73 sqM) Est GFR (CKD-EPI)NonAf 81 (>60 ml/min/1.73 sqM) Glucose 104 H (74-99) mg/dL Calcium 8.9 (8.4-10.2) mg/dL Total Bilirubin 0.7 (0.2-1.3) mg/dL AST 29 (17-59) U/L ALT 20 (4-49) U/L Alkaline Phosphatase 89 (38-126) U/L Total Protein 8.0 (6.3-8.2) g/dL Albumin 3.8 (3.5-5.0) g/dL Disposition Clinical Impression: Rib fracture Disposition: ADMITTED IP TO THIS HOSP Condition: Good Referrals: Luis Zavaleta MD [Primary Care Provider] - 1-2 days Time of Disposition: 12:30
--- NOTE | 2023-04-27 12:03 | CT ---
EXAMINATION TYPE: CT chest abdomen wo con DATE OF EXAM: 04/27/2023 COMPARISON: None HISTORY: fall, left side rib pain CT DLP: 498.6 mGycm Automated exposure control for dose reduction was used. FINDINGS: Emphysematous changes are seen with biapical pleural thickening. There is subsegmental areas of conso lidation most typical atelectasis. No consolidative pneumonia. There is mild central basilar bronchie ctasis. The heart is enlarged. 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 Mild atherosclerotic changes. No pneumothorax. Coronary artery calcium herniation. Bilateral shoulder replacement surgery. There is multilevel hypertrophic and degenerative changes of the spine. There are displaced rib fract ures on the left seventh, eighth, ninth and 10th ribs. There is a small pleural effusion and basilar consolidation. A trace a gynecomastia. Bilateral axilla ry adenopathy. 3 mm punctate left renal calculus. Structures of the upper abdomen demonstrate no evidence of renal calcification. Bowel gas pattern non specific with changes of diverticulosis. Atherosclerotic change aorta. Assessment for organ injury li mited by noncontrast technique. Grossly there is no perisplenic or perihepatic fluid collection. Thic kening of the adrenal glands is stable. Pancreas is homogeneous. IMPRESSION: 1. Displaced left seventh, eighth, ninth and 10th rib fractures with small left pleural effusion poss ibly representing hemothorax and basilar consolidation. 2. Limited assessment for organ injury secondary to noncontrast technique. Grossly no free fluid as v isualized. 3. Aorta demonstrates ectasia measuring 3.7 cm. 4. Nonspecific adenopathy in the retropectoral and axillary regions.
[2023-04-27 12:41] LABS: Basophils # (A) 0.1 k/uL (0-0.2); Basophils % (A) 1 %; Eosinophils # (A) 0.4 k/uL (0-0.7); Eosinophils % (A) 5 %; HCT 38.5 % (39.0-53.0); Hypochromasia Moderate; Lymphocytes # (A) 2.1 k/uL (1.0-4.8); Lymphocytes % (A) 26 %; MCH 26.8 pg (25.0-35.0); MCHC 31.2 g/dL (31.0-37.0); MCV 86.1 fL (80.0-100.0); Mean Platelet Volume 7.2; Monocytes # (A) 0.4 k/uL (0-1.0); Monocytes % (A) 4 %; Neutrophils % (A) 62 %; Platelet Count 316 k/uL (150-450); RBC 4.47 m/uL (4.30-5.90); RDW 15.6 % (11.5-15.5); WBC 8.2 k/uL (3.8-10.6)
[2023-04-27 12:53] LABS: ALT 20 U/L (4-49); AST 29 U/L (17-59); African American GFR (CKD) >90 (>60 ml/min/1.73 sqM); Albumin 3.8 g/dL (3.5-5.0); Alkaline Phosphatase 89 U/L (38-126); Anion Gap 11 mmol/L; Blood Urea Nitrogen 21 mg/dL (9-20); Calcium 8.9 mg/dL (8.4-10.2); Carbon Dioxide 21 mmol/L (22-30); Chloride 106 mmol/L (98-107); Glucose 104 mg/dL (74-99); Non-African American GFR(CKD) 81 (>60 ml/min/1.73 sqM); Potassium 4.6 mmol/L (3.5-5.1); Sodium 138 mmol/L (137-145); Total Bilirubin 0.7 mg/dL (0.2-1.3)
[2023-04-27 12:57] LABS: Partial Thromboplastin Time 28.7 sec (22.0-30.0); Prothrombin Time 10.7 sec (9.0-12.0)
[2023-04-27] MEDS ORDERED: NALOXONE 0.4 MG/ML 1 ML VIAL IV PRN (13:00)
[2023-04-27] MEDS ORDERED: ONDANSETRON 4 MG/2 ML VIAL IVP PRN (13:00)
[2023-04-27 13:02] LABS: Appearance,Urine Clear (Clear); Bilirubin,Urine Negative (Negative); Blood,Urine Trace (Negative); Glucose,Urine (UA) Negative (Negative); Hyaline Casts,Urine 1 /lpf (0-2); Ketones,Urine Negative (Negative); Leukocyte Esterase,Urine Negative (Negative); Mucus,Urine Few /hpf; Nitrite,Urine Negative (Negative); Protein,Urine Trace (Negative); RBC,Urine 1 /hpf (0-5); Specific Gravity,Urine 1.022 (1.001-1.035); Squamous Epithelial Cell,Urine <1 /hpf (0-4); Urobilinogen,Urine <2.0 mg/dL (<2.0); WBC,Urine 1 /hpf (0-5)
[2023-04-27 13:08] LABS: Color,Urine Yellow
[2023-04-27] MEDS: MORPHINE SULFATE 4 MG/ML SYRINGE IVP PRN (14:03)
--- NOTE | 2023-04-27 15:09 | P.PAINPG ---
Objective - Vital Signs Vital signs: Vital Signs Temp 98.0 F 04/27/23 09:37 Pulse 72 04/27/23 14:28 Resp 18 04/27/23 14:28 BP 168/84 04/27/23 14:28 Pulse Ox 98 04/27/23 14:28 FiO2 Intake & Output 04/26/23 04/27/23 04/27/23 18:59 06:59 18:59 Weight 63.503 kg - Labs CBC & Chem 7: 04/27/23 12:22 04/27/23 12:22 Labs: Abnormal Lab Results - Last 24 Hours (Table) 04/27/23 04/27/23 04/27/23 Range/Units 12:22 12:22 12:22 Hgb 12.0 L (13.0-17.5) gm/dL Hct 38.5 L (39.0-53.0) % RDW 15.6 H (11.5-15.5) % Carbon Dioxide 21 L (22-30) mmol/L BUN 21 H (9-20) mg/dL Glucose 104 H (74-99) mg/dL Urine Protein Trace H (Negative) Urine Blood Trace H (Negative) Urine Mucus Few H (None) /hpf PQRS Measure Charge Sheet Comment: HISTORY OF PRESENT ILLNESS: 82 yr old inpatient male w at side presents today w severe and chronic L sided chest pain secondary to multiple rib fractures s/p fall for evaluation. Pt states he tripped on a hose and fell from a standing position on a metal guard rail at a gas station when he felt pronounced L sided chest pain. Pain level is provoked at 10/10 in intensity w any type of movement, constant, localized in the L lateral chest, sore, tender, achy, sharp in character without shooting pain. Pain is alleviated by medications including MS ER 4mg IVP q4h prn pain, Toradol 15mg IVP q6h prn pain. Pt also has Narcan on file. He normally takes Tramadol but it is not helping reduce this pain. PMH: OA, Prostatic Hypertrophy PSH: Back Surgery (Feb 2020), BL Knee Arthroscopic Surgery, Tonsillectomy SH: Rare ETOH use, No tobacco use, No illicit drug use. and lives w spouse. FH: Mo- No Reported History All: See list Meds: See list REVIEW OF ORGAN SYSTEMS: CONSTITUTIONAL: No fevers or chills. No recent weight loss. NEUROLOGICAL: + numbness and tingling along the distal extremities. No seizure disorders or headaches. MUSCULOSKELETAL: + pain PSYCHIATRIC: Denies current depression or suicidal thoughts. Physical Examinations : Constitutional : Cooperative , not in acute distress . Neurologic : Cranial nerve II to XII intact. No focal neurological deficits. Psychiatric : alert & oriented x 3. Matching mood & appropriate affect. Judgment & insight intact. Musculoskeletal : Cervical Spine Motor strength in the deltoid and biceps: Normal right side. Normal Left side Motor strength biceps and the wrist extensors: Normal right side . Normal left side Motor strength in the triceps muscle: Normal right side. Normal left side Deep tendon reflexes: Normal at the biceps. Normal at Brachioradialis. Normal at triceps Vertebral body tenderness to deep palpation over Cervical facet loading test: positive bilaterally Spurling test: positive bilaterally Neck distraction test: positive bilaterally Buck sign: positive bilaterally Thoracic spine Diffuse L lateral chest TTP, ecchymosis, edema Lumbar spine Motor strength lower extremities ,thigh and legs 5/5 Right side , 5/5 Left side Deep tendon reflexes : Normal Knee Jerk. Normal Ankle Jerk Vertebral body tenderness over Sultana Test positive Lumbar facet Loading Test: positive Right / positive Left Range of motion of the lumbar spine Flexion 30 degrees, extension 10 degrees Straight Leg Raise test: Left/ Right positive at degree Janeen test: positive right / positive left. Severe tenderness over the Sacroiliac joint on the Right / Left sides Gaenslen test: positive bilaterally Seated flexion test: positive bilaterally. Sacral spine : Severe tenderness over the Sacroiliac joint: right side / left side Range of motion: Flexion of the lumbar spine <60 degrees Range of motion: Extension of the lumbar spine <20 degrees Gaenslen's Test positive Josue's Test positive Janeen test: positive right side / left side Thigh Thrust Test Sacral Thrust Test Imaging: CT without contrast of the chest from 04/27/23 reviewed Assessment/ Plan : L 7th, 8th, 9th, 10th rib fractures s/p fall Recommendation of medication management on an outpatient basis. To stop Tramadol while taking [place] for acute L rib pain. Continue IV medications while hospitalized as pt appears will be admitted. Risks, benefits of medications discussed and patient verbalized understanding. All questions answered. I have spent greater than 30 minutes on patient care today. Dr Damian was available by phone for the evaluation of this patient. The time was used to review the medical records including relevant urine studies and Prescription history (MAPs), review of the available imaging, evaluation and examination of the patient, coordination of care with the medical staff and if applicable referring physicians, as well as creation of the medical record PQRS Narrative: Smoking Status Never smoker Blood Pressure 168/84 Pain Intensity 6 Pain Scale Used Numeric (1 - 10) Scale Used Numeric (1 - 10) Home Medications: Ambulatory Orders Dutasteride [Avodart] 0.5 mg PO DAILY 04/04/20 Gabapentin [Neurontin] 300 mg PO HS 04/04/20 Multivitamins, Thera [Multivitamin (formulary)] 1 tab PO DAILY 04/04/20 Calcium Carbonate [Calcium] 600 mg PO DAILY 03/30/21 Celecoxib [CeleBREX] 200 mg PO DAILY@1400 03/30/21 Tamsulosin [Flomax] 0.4 mg PO HS 03/30/21 traMADol HCL 50 mg PO DAILY 03/30/21 HYDROcodone/APAP 10-325MG [[place] 10-325] 1 tab PO Q4HR PRN 7 Days #42 tab 04/27/23 Levothyroxine Sodium [Synthroid] 88 mcg PO AC-BRKFST 04/27/23 traMADol HCL 50 mg PO DAILY PRN 04/27/23 Controlled Substance Measures - Controlled Substance Measures Is patient prescribed a controlled substance at discharge?: Yes When asked, does pt state using other controlled substances?: Yes If prescribed controlled substance>3 days was MAPS reviewed?: Yes If Rx opioid, was Start Talking consent form obtained?: Yes If opioid is for acute pain is fill amount 7 days or less?: Yes Was information provided regarding opioid addiction?: Yes
[2023-04-27] MEDS ORDERED: ACETAMINOPHEN TAB 500 MG TAB PO PRN (16:09)
--- NOTE | 2023-04-27 16:11 | P.GSHP ---
History of Present Illness H&P Date: 04/27/23 CHIEF COMPLAINT: Fall HISTORY OF PRESENT ILLNESS: This is a 82-year-old male who fell about 4 days ago hitting his left rib cage on a metal guardrail on his truck while filling up his gas tank. He denies any loss of consciousness. Denies hitting his head. Denies any abdominal pain. Denies any nausea or vomiting. Patient was able to drive home. He has been ambulating. However he presents due to the fact that the pain has been persistent. He does have pain with taking a deep breath. Otherwise he denies any shortness of breath. He denies being on any blood thinners. PAST MEDICAL HISTORY: See list. PAST SURGICAL HISTORY: See list. MEDICATIONS: See list. ALLERGIES: See list. SOCIAL HISTORY: No illicit drug use. REVIEW OF SYSTEMS: CONSTITUTIONAL: Denies fever or chills. HEENT: Denies blurred vision, vision changes, or eye pain. Denies hemoptysis ENDOCRINE: Denies heat or cold intolerance. CARDIOVASCULAR: Denies chest pain or pressure. RESPIRATORY: No shortness of breath. GASTROINTESTINAL: Denies abdominal pain. Denies nausea or vomiting. NEURO: Denies history of seizures. PSYCH: No depression or suicidal ideation HEMATOLOGIC: Denies bleeding disorders. LYMPHATIC: The patient denies any lumps and bumps around the neck. GENITOURINARY: Denies any blood in urine or increased urinary frequency. MUSCULOSKELETAL: Denies myalgias. Denies joint swelling. Denies decreased range of motion beyond patients baseline. SKIN: Denies pruitis. Denies rash. PHYSICAL EXAM: VITAL SIGNS: Reviewed GENERAL: Well-developed in no acute distress. HEENT: No sclera icterus. Extraocular movements grossly intact. Moist buccal mucosa. Head is atraumatic, normocephalic. Hears conversational speech. No nasal drainage. NECK: Supple without lymphadenopathy. CHEST: Non-labored respirations and equal bilateral excursions. CARDIOVASCULAR: Palpable 2+ radial pulses. ABDOMEN: Soft. Nondistended. Nontender MUSCULOSKELETAL: No clubbing or cyanosis. NEUROLOGIC: No focal or lateralizing signs. Cranial nerves II through XII grossly intact. PSYCH: Appropriate affect. Alert and oriented to person, place and time. SKIN: Well perfused. Good skin turgor. LABORATORY DATA: WBC 8.2 hgb 12 plt 316 INR 1.0 Sodium 138 potassium 4.6 creatinine 0.85 IMAGING: Computed tomography scan chest and abdomen displaced left seventh, eighth, ninth and 10th rib fractures with small left pleural effusion possibly representing hemothorax or basilar consolidation. Limited assessment for organ injury secondary to noncontrast technique. Grossly no free fluid is visualized. Aorta demonstrates ectasia measuring 3.7 cm. Nonspecific adenopathy in the retro- pectoral and axillary regions. ASSESSMENT: 1. Fall with Trauma to left rib cage and displaced left seventh, eighth, ninth, 10th rib fractures 2. Small left pleural effusion possibly representing a hemothorax and basilar consolidation PLAN: -Pain service has been consulted for pain management -Pulmonary service consulted for rib fractures and pleural effusion and possible hemothorax -Consult medicine service for medical management -Add Lidoderm patch and Tylenol PRN for pain control -Encouraged patient to use incentive spirometer -Consult physical therapy to help ambulate patient -Start regular diet -Continue supportive care Physician Loader Helper note has been reviewed by physician. Signing provider agrees with the documented findings, assessment, and plan of care. Past Medical History Past Medical History: Osteoarthritis (OA), Prostate Disorder Additional Past Medical History / Comment(s): enlarged prostate, back pain History of Any Multi-Drug Resistant Organisms: None Reported Past Surgical History: Back Surgery, Orthopedic Surgery, Tonsillectomy Additional Past Surgical History / Comment(s): February 2020- back surgery to remove a piece of bone, [place] knee arthroscopy Past Anesthesia/Blood Transfusion Reactions: No Reported Reaction Past Psychological History: No Psychological Hx Reported Smoking Status: Never smoker Past Alcohol Use History: Rare Past Drug Use History: None Reported - Past Family History Mother Family Medical History: No Reported History Medications and Allergies Home Medications Medication Instructions Recorded Confirmed Type Dutasteride [Avodart] 0.5 mg PO DAILY 04/04/20 04/27/23 History Gabapentin [Neurontin] 300 mg PO HS 04/04/20 04/27/23 History Multivitamins, Thera [Multivitamin 1 tab PO DAILY 04/04/20 04/27/23 History (formulary)] Calcium Carbonate [Calcium] 600 mg PO DAILY 03/30/21 04/27/23 History Celecoxib [CeleBREX] 200 mg PO DAILY@1400 03/30/21 04/27/23 History Tamsulosin [Flomax] 0.4 mg PO HS 03/30/21 04/27/23 History traMADol HCL 50 mg PO DAILY 03/30/21 04/27/23 History HYDROcodone/APAP 10-325MG [[place] 1 tab PO Q4HR PRN 7 Days #42 tab 04/27/23 Rx 10-325] Levothyroxine Sodium [Synthroid] 88 mcg PO AC-BRKFST 04/27/23 04/27/23 History traMADol HCL 50 mg PO DAILY PRN 04/27/23 04/27/23 History Allergies Allergy/AdvReac Type Severity Reaction Status Date / Time No Known Allergies Allergy Verified 04/27/23 14:00 Surgical - Exam Vital Signs Temp Pulse Resp BP Pulse Ox 98.0 F 60 18 124/65 97 04/27/23 09:37 04/27/23 09:37 04/27/23 09:37 04/27/23 09:37 04/27/23 09:37 Results - Labs 04/27/23 12:22 04/27/23 12:22 Abnormal Lab Results - Last 24 Hours (Table) 04/27/23 04/27/23 04/27/23 Range/Units 12:22 12:22 12:22 Hgb 12.0 L (13.0-17.5) gm/dL Hct 38.5 L (39.0-53.0) % RDW 15.6 H (11.5-15.5) % Carbon Dioxide 21 L (22-30) mmol/L BUN 21 H (9-20) mg/dL Glucose 104 H (74-99) mg/dL Urine Protein Trace H (Negative) Urine Blood Trace H (Negative) Urine Mucus Few H (None) /hpf Diabetes panel 04/27/23 Range/Units 12:22 Sodium 138 (137-145) mmol/L Potassium 4.6 (3.5-5.1) mmol/L Chloride 106 (98-107) mmol/L Carbon Dioxide 21 L (22-30) mmol/L BUN 21 H (9-20) mg/dL Creatinine 0.85 (0.66-1.25) mg/dL Glucose 104 H (74-99) mg/dL Calcium 8.9 (8.4-10.2) mg/dL AST 29 (17-59) U/L ALT 20 (4-49) U/L Alkaline Phosphatase 89 (38-126) U/L Total Protein 8.0 (6.3-8.2) g/dL Albumin 3.8 (3.5-5.0) g/dL Calcium panel 04/27/23 Range/Units 12:22 Calcium 8.9 (8.4-10.2) mg/dL Albumin 3.8 (3.5-5.0) g/dL Pituitary panel 04/27/23 Range/Units 12:22 Sodium 138 (137-145) mmol/L Potassium 4.6 (3.5-5.1) mmol/L Chloride 106 (98-107) mmol/L Carbon Dioxide 21 L (22-30) mmol/L BUN 21 H (9-20) mg/dL Creatinine 0.85 (0.66-1.25) mg/dL Glucose 104 H (74-99) mg/dL Calcium 8.9 (8.4-10.2) mg/dL Adrenal panel 04/27/23 Range/Units 12:22 Sodium 138 (137-145) mmol/L Potassium 4.6 (3.5-5.1) mmol/L Chloride 106 (98-107) mmol/L Carbon Dioxide 21 L (22-30) mmol/L BUN 21 H (9-20) mg/dL Creatinine 0.85 (0.66-1.25) mg/dL Glucose 104 H (74-99) mg/dL Calcium 8.9 (8.4-10.2) mg/dL Total Bilirubin 0.7 (0.2-1.3) mg/dL AST 29 (17-59) U/L ALT 20 (4-49) U/L Alkaline Phosphatase 89 (38-126) U/L Total Protein 8.0 (6.3-8.2) g/dL Albumin 3.8 (3.5-5.0) g/dL
[2023-04-27] MEDS: LIDOCAINE 5% PATCH TOPICAL SCH (16:14)
[2023-04-27] MEDS ORDERED: ACETAMINOPHEN TAB 500 MG TAB PO SCH (18:00)
[2023-04-27] MEDS: KETOROLAC 15 MG/ML 1 ML VIAL IVP PRN (20:01)
[2023-04-27] MEDS ORDERED: GABAPENTIN 300 MG CAP PO SCH (21:00)
[2023-04-27] MEDS ORDERED: TAMSULOSIN 0.4 MG CAP.ER.24H PO SCH (21:00)
--- NOTE | 2023-04-28 00:19 | P.CONS ---
History of Present Illness - Reason for Consult Consult date: 04/27/23 medical management - Chief Complaint left rib pain - History of Present Illness 82-year-old male with hypothyroidism BPH Patient had an accidental injury on Tuesday night 4 days ago he was pumping gas tripped and fell on the guardrail resulting in injury to his left side denies any head injury denies any loss of consciousness. He was able to drive back home he was in the [facility] throat the past few days she noticed some increasing pain on his left side today he decided to come in for evaluation due to persistent left-sided pain denies any difficulty breathing denies any wheezing denies any fevers chills coughing or hemoptysis denies any abdominal pain or GI bleeding denies any nausea vomiting. Patient is not on any blood thinners Workup in the ED showed displaced fracture of the left 7, 8, 9 and 10th ribs small pleural effusion suspicious of being hemothorax Patient denies tobacco smoking and illicit drugs or alcohol review of systems Pertinent positives as noted in HPI. All other systems were reviewed and are negative on exam Constitutional: No acute distress, conversant, pleasant Eyes: Anicteric sclerae, moist conjunctiva, Pupils equal round reactive to light ENMT: NC/AT Oropharynx clear, no erythema, or exudates Neck: Supple, no masses, or JVD No carotid bruits No thyromegaly Lungs: Clear to auscultation Clear to percussion Normal respiratory effort, no accessory muscle use Cardiovascular: Heart regular in rate and rhythm, No murmurs, gallops, or rubs No peripheral edema Abdominal: Soft Nontender, no guarding, rebound or rigidity Abdomen moving with respiration Normoactive bowel sounds No hepatomegaly, No splenomegaly No palpable mass No abdominal wall hernia noted Skin: No visible bruising or ecchymosis or any open wounds on the left side of the chest Extremities: severe arthritis with lateral deviation both hands No clubbing Pedal pulses intact and symmetrical Radial pulses intact and symmetrical No calf tenderness Psychiatric: Alert and oriented to person, place and time Appropriate affect Neuro Muscles Strength 4/5 in all 4 extremities Sensation to light touch grossly present throughout Cranial nerves II-XII grossly intact Lymphatics: no palpable cervical or supraclavicular lymph nodes Past Medical History Past Medical History: Osteoarthritis (OA), Prostate Disorder Additional Past Medical History / Comment(s): enlarged prostate, back pain History of Any Multi-Drug Resistant Organisms: None Reported Past Surgical History: Back Surgery, Orthopedic Surgery, Tonsillectomy Additional Past Surgical History / Comment(s): February 2020- back surgery to remove a piece of bone, [place] knee arthroscopy Past Anesthesia/Blood Transfusion Reactions: No Reported Reaction Past Psychological History: No Psychological Hx Reported Smoking Status: Never smoker Past Alcohol Use History: Rare Past Drug Use History: None Reported - Past Family History Mother Family Medical History: No Reported History Medications and Allergies Home Medications Medication Instructions Recorded Confirmed Type Dutasteride [Avodart] 0.5 mg PO DAILY 04/04/20 04/27/23 History Gabapentin [Neurontin] 300 mg PO HS 04/04/20 04/27/23 History Multivitamins, Thera [Multivitamin 1 tab PO DAILY 04/04/20 04/27/23 History (formulary)] Calcium Carbonate [Calcium] 600 mg PO DAILY 03/30/21 04/27/23 History Celecoxib [CeleBREX] 200 mg PO DAILY@1400 03/30/21 04/27/23 History Tamsulosin [Flomax] 0.4 mg PO HS 03/30/21 04/27/23 History traMADol HCL 50 mg PO DAILY 03/30/21 04/27/23 History HYDROcodone/APAP 10-325MG [[place] 1 tab PO Q4HR PRN 7 Days #42 tab 04/27/23 Rx 10-325] Levothyroxine Sodium [Synthroid] 88 mcg PO AC-BRKFST 04/27/23 04/27/23 History traMADol HCL 50 mg PO DAILY PRN 04/27/23 04/27/23 History Allergies Allergy/AdvReac Type Severity Reaction Status Date / Time No Known Allergies Allergy Verified 04/27/23 14:00 Physical Exam Vitals: Vital Signs Temp Pulse Pulse Resp BP BP Pulse Ox 04/27/23 19:43 97.7 F 70 18 127/75 96 04/27/23 18:10 98.1 F 71 16 155/90 98 04/27/23 14:28 72 18 168/84 98 04/27/23 09:37 98.0 F 60 18 124/65 97 Intake and Output 04/27/23 04/27/23 04/28/23 14:59 22:59 06:59 Other: Weight 63.503 kg 63.503 kg Results CBC & Chem 7: 04/27/23 12:22 04/27/23 12:22 Labs: Abnormal Lab Results - Last 24 Hours (Table) 04/27/23 04/27/23 04/27/23 Range/Units 12:22 12:22 12:22 Hgb 12.0 L (13.0-17.5) gm/dL Hct 38.5 L (39.0-53.0) % RDW 15.6 H (11.5-15.5) % Carbon Dioxide 21 L (22-30) mmol/L BUN 21 H (9-20) mg/dL Glucose 104 H (74-99) mg/dL Urine Protein Trace H (Negative) Urine Blood Trace H (Negative) Urine Mucus Few H (None) /hpf Assessment and Plan Assessment: Hypothyroid Resume levothyroxine Severe arthritis bilateral hands Pain control when necessary Tylenol when necessary [place] as needed Accidental injury resulting and displaced rib fracture on the left side 7, 8, 9, 10 with possible small left hemothorax Management per surgery team Monitor vital signs Blood work reviewed unremarkable hemoglobin 12 white count 8.2 Sodium 138 potassium 4.6 BUN 21 creatinine 0.85 Stable from medical stand point Thank you for this" consultation
[2023-04-28] MEDS: MORPHINE SULFATE 4 MG/ML SYRINGE IVP PRN (00:21)
--- NOTE | 2023-04-28 02:38 | P.CNPUL ---
History of Present Illness Consult date: 04/28/23 Requesting physician: Flavio Herrera Reason for consult: abnormal CXR/CT Chief complaint: fall History of present illness: I am seeing this patient in new consultation today 04/28/2023 after the patient fell on Tuesday sustaining multiple rib fractures. Patient is an 82-year-old white male without significant medical history. Patient states that he was in the [facility] at a gas station when he tripped over the gas pump landing on the guard rail. The impact was mostly to his left chest. Denies hitting his head. Patient states that the chest pain persisted, and felt he should be ambar luated now that he is back home. He presented to the ER yesterday morning. CT of the chest and abdomen on arrival showed displaced left seventh, eighth, ninth, and 10th rib fractures with small left pleural effusion possibly representing a hemothorax and some associated basilar consolidation/atelectasis. No pneumothorax. No other obvious intra-abdominal injuries were reported, however, this was limited by noncontrast examination. He is currently sitting up in bed, on room air, in no acute distress. He denies any shortness of breath, cough, hemoptysis. His pain is well managed. He only complains of pain when moving/ambulating. He is receiving as needed Toradol and morphine. Incentive spirometer is at the bedside. CBC shows a WBC count of 8.2, hemoglobin 12, hematocrit 38.5, platelets 316. normal coagulation profile. BMP was unremarkable. No plans for surgery. Patient is hemodynamically stable. Review of Systems REVIEW OF SYSTEMS: CONSTITUTIONAL: Denies any recent significant weight loss or weight gain. Denies fever. EYES: Denies change in vision. EARS, NOSE, MOUTH, THROAT: Denies headaches, denies sore throat. CARDIOVASCULAR: Denies radiating chest pain, palpitations or syncopal episodes. RESPIRATORY: Denies shortness of breath, cough, congestion or hemoptysis. GASTROINTESTINAL: Denies change in appetite, abdominal pain, nausea and vomiting, or diarrhea GENITOURINARY: Denies hematuria, denies infections. MUSKULOSKELETAL: see HPI INTEGUMENTARY: Denies rash, denies eczema. NEUROLOGICAL: Denies recent memory loss, no recent seizure activity. PSYCHIATRIC: Denies anxiety, denies depression. HEMATOLOGIC/LYMPHATIC: Denies anemia, denies enlarged lymph node Past Medical History Past Medical History: Osteoarthritis (OA), Prostate Disorder Additional Past Medical History / Comment(s): enlarged prostate, back pain History of Any Multi-Drug Resistant Organisms: None Reported Past Surgical History: Back Surgery, Orthopedic Surgery, Tonsillectomy Additional Past Surgical History / Comment(s): February 2020- back surgery to remove a piece of bone, [place] knee arthroscopy Past Anesthesia/Blood Transfusion Reactions: No Reported Reaction Past Psychological History: No Psychological Hx Reported Smoking Status: Never smoker Past Alcohol Use History: Rare Past Drug Use History: None Reported - Past Family History Mother Family Medical History: No Reported History Medications and Allergies Home Medications Medication Instructions Recorded Confirmed Type Dutasteride [Avodart] 0.5 mg PO DAILY 04/04/20 04/27/23 History Gabapentin [Neurontin] 300 mg PO HS 04/04/20 04/27/23 History Multivitamins, Thera [Multivitamin 1 tab PO DAILY 04/04/20 04/27/23 History (formulary)] Calcium Carbonate [Calcium] 600 mg PO DAILY 03/30/21 04/27/23 History Celecoxib [CeleBREX] 200 mg PO DAILY@1400 03/30/21 04/27/23 History Tamsulosin [Flomax] 0.4 mg PO HS 03/30/21 04/27/23 History traMADol HCL 50 mg PO DAILY 03/30/21 04/27/23 History HYDROcodone/APAP 10-325MG [[place] 1 tab PO Q4HR PRN 7 Days #42 tab 04/27/23 Rx 10-325] Levothyroxine Sodium [Synthroid] 88 mcg PO AC-BRKFST 04/27/23 04/27/23 History traMADol HCL 50 mg PO DAILY PRN 04/27/23 04/27/23 History Allergies Allergy/AdvReac Type Severity Reaction Status Date / Time No Known Allergies Allergy Verified 04/27/23 14:00 Physical Exam Vitals: Vital Signs Temp Pulse Pulse Resp BP BP Pulse Ox 04/27/23 19:43 97.7 F 70 18 127/75 96 04/27/23 18:10 98.1 F 71 16 155/90 98 04/27/23 14:28 72 18 168/84 98 04/27/23 09:37 98.0 F 60 18 124/65 97 Intake and Output 04/27/23 04/27/23 04/28/23 14:59 22:59 06:59 Other: Weight 63.503 kg 63.503 kg GENERAL EXAM: Alert, 82-year-old white male appearing stated age, comfortable in no apparent distress. HEAD: Normocephalic and atraumatic EYES: Normal reaction of pupils, equal size. NOSE: Clear with pink turbinates. THROAT: No erythema or exudates. NECK: No masses, no JVD. CHEST: No chest wall deformity. No crepitus or subcutaneous emphysema. LUNGS: Equal air entry with diminished left basilar lung sounds. No crackles, wheeze, rhonchi or dullness. On room air. No conversational dyspnea or accessory muscle use.. CVS: S1 and S2 normal with no audible murmur, regular rhythm. No extra heart sounds ABDOMEN: No hepatosplenomegaly, active bowel sounds, no guarding or rigidity. SPINE: No scoliosis or deformity SKIN: No rashes CENTRAL NERVOUS SYSTEM: No focal deficits, tone is normal in all 4 extremities. EXTREMITIES: There is no peripheral edema, clubbing, or cyanosis. Peripheral pulses are intact. Results - Laboratory Findings CBC and BMP: 04/27/23 12:22 04/27/23 12:22 PT/INR, D-dimer PT 10.7 sec (9.0-12.0) 04/27/23 12:22 INR 1.0 (<1.2) 04/27/23 12:22 Abnormal lab findings: Abnormal Labs 04/27/23 04/27/23 04/27/23 12:22 12:22 12:22 Hgb 12.0 L Hct 38.5 L RDW 15.6 H Carbon Dioxide 21 L BUN 21 H Glucose 104 H Urine Protein Trace H Urine Blood Trace H Urine Mucus Few H - Diagnostic Findings CT scan - chest: image reviewed Assessment and Plan Assessment: Fall sustaining, left minimally displaced seventh, eighth, ninth, and 10th rib fractures. There is also a small left pleural effusion, suspicious for hemothorax. No obvious pneumothorax. This occurred 5 days ago. Abdominal aorta ectasia measuring 3.[address] Hypothyroidism, secondary to previous thyroidectomy BPH Osteoarthritis Plain: Patient's medications, labs, and CT were reviewed on room air Pain is well controlled with current analgesics Encourage incentive spirometer and activity as tolerated Trauma occurred over five days ago, suspected hemothorax is small, unsure if there will be any benefit from thoracentesis. Patient is hemodynamically stable. We will continue to follow I have personally seen and examined the patient, performed the documentation and the assessment and plan as written. Number of minutes spent on the visit:20 This is a joint evaluation that was done along with the nurse practitioner. This evaluation was done in more than 30 minutes. The patient sustained a fall. CAT scan of the chest was noted. There is a small fluid collection probably small pneumothorax on the left. The fractures were noted. These are minimally displaced fractures of the ribs. The patient is not having any major is to distress pain no significant chest pain. We'll repeat the chest x-ray today. If the findings are unchanged in terms of the pleural fluid/hemothorax, the patient can be discharged home to be followed up on outpatient basis. His pain control is adequate and the patient has an incentive spirometer. Time with Patient: Greater than 30
[2023-04-28] MEDS: KETOROLAC 15 MG/ML 1 ML VIAL IVP PRN ×4 (05:19→17:15)
[2023-04-28] MEDS ORDERED: LEVOTHYROXINE 88 MCG TAB PO SCH (07:30)
[2023-04-28 08:48] VITALS: BP 165/83; PULSE 72; RESP 20; TEMP 97.4
[2023-04-28] MEDS ORDERED: FINASTERIDE 5 MG TAB PO SCH (09:00)
[2023-04-28] MEDS ORDERED: MULTIVITAMINS, THERA 1 EACH TAB PO SCH (09:00)
[2023-04-28] MEDS ORDERED: traMADol 50 MG TAB PO SCH (09:00)
[2023-04-28] MEDS: LIDOCAINE 5% PATCH TOPICAL SCH (09:49)
--- NOTE | 2023-04-28 10:05 | P.PN ---
Subjective Progress Note Date: 04/28/23 Hospital course: Patient is a very pleasant 82-year-old male with a past medical history of BPH and hypothyroidism. Patient sustained an accidental trip and fall on 04/23/23 and presented to the emergency department on 04/27/23 secondary to persistent left-sided rib/chest pain status post this fall. Patient reported he was feeling his truck up at the gas station when he accidentally trimmed and fell over the hose falling on his left side onto a metal guardrail. Patient underwent full evaluation in the emergency department. CT abdomen and chest was completed revealing displaced fractures of the seventh, eighth, ninth, and 10th ribs on his left side with a small pleural effusion and concerns of possible hemothorax along with aorta demonstrates ectasia measuring 3.7 cm and no nspecific adenopathy in the retro-pectoral and axillary regions.. Lab work also completed. CBC showing mild normocytic anemia with hemoglobin stable at 12.0. Normal coagulation profile. BMP unremarkable with the exception of slightly elevated BUN of 21. Liver profile unremarkable. An urinalysis positive for protein and trace blood but only 1 RBC noted. Patient was admitted under Gen. surgery/trauma team and we were consulted for medical management throughout hospitalization. Physical exam: Vital signs reviewed and stable. General: Nontoxic, no distress and appears stated age. Derm: Skin warm and dry, normal coloration for ethnicity. Head: Atraumatic, normocephalic and symmetric. Eyes: EOMs intact, no lid lag, and anicteric sclera Mouth: no lip lesions, mucus membranes moist Cardiovascular: regular rate and rhythm with normal S1S2, no murmur, positive posterior tibial pulses bilaterally, and cap refill < 2 seconds. Lungs: Respirations even, regular, and unlabored on room air. Lungs CTA bilaterally, no rhonchi, no rales, no wheezing, and no accessory muscle usage. Abdominal: soft, nontender to palpation, no guarding, no appreciable organomegaly Ext: ROM intact. No gross muscle atrophy, no edema, no contractures Neuro: Speech clear, face symmetrical and CN II-XII grossly intact with no noted focal neuro deficits Psych: Alert and oriented to person, place, time, and situation. Appropriate and pleasant affect. Assessment and Plan of Care: Left-sided Displaced ribs 7th, 8th, 9th, and 10th Traumatic fall Pleural effusion Concerns of possible pneumothorax -Management per primary admitting general surgery/trauma team including DVT prophylaxis. -Continue supportive care and pain management with Tylenol 1000 mg every 6 hours as needed for mild to moderate pain and morphine 4 mg every 4 hours as needed for severe pain. 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 BPH Patient to continue with Flomax 0.4 mg nightly. Hypothyroidism Patient to continue with levothyroxine 88 g daily. Data review: Vital signs reviewed. Blood pressure 165/83, heart rate 72, respiratory rate 20, temp 97.4F, SpO2 of 97% on room air. Thank you for allowing us to participate in the care of this pleasant patient. Do not hesitate to contact us with questions. Someone can be reached from the [facility] hospitalist group all hours of the day at [phone] or via [employer]. Patient was seen independently by Nurse Pracitioner. This document was prepared using [employer] dictation software. Please allow for errors in risk control specialist, while rare they do occur. Seven Hernandez NP rendered care for this patient independently, reviewed the findings and plan as documented in the note above. I did not physically speak with or examine the patient on this date. Objective - Vital Signs Vital signs: Vital Signs Temp 97.9 F 04/28/23 02:39 Pulse 77 04/28/23 02:39 Resp 18 04/28/23 02:39 BP 128/69 04/28/23 02:39 Pulse Ox 96 04/28/23 02:39 FiO2 Intake & Output 04/27/23 04/28/23 04/28/23 18:59 06:59 18:59 Intake Total 500 Balance 500 Weight 63.503 kg 63.503 kg Intake: Oral 500 Other: # Voids 2 - Labs CBC & Chem 7: 04/27/23 12:22 04/27/23 12:22 Labs: Abnormal Lab Results - Last 24 Hours (Table) 04/27/23 04/27/23 04/27/23 Range/Units 12:22 12:22 12:22 Hgb 12.0 L (13.0-17.5) gm/dL Hct 38.5 L (39.0-53.0) % RDW 15.6 H (11.5-15.5) % Carbon Dioxide 21 L (22-30) mmol/L BUN 21 H (9-20) mg/dL Glucose 104 H (74-99) mg/dL Urine Protein Trace H (Negative) Urine Blood Trace H (Negative) Urine Mucus Few H (None) /hpf
--- NOTE | 2023-04-28 14:17 | XR ---
EXAMINATION TYPE: XR chest 2V DATE OF EXAM: 04/28/2023 COMPARISON: 04/27/2023 TECHNIQUE: PA and lateral views submitted. HISTORY: Follow-up pneumothorax. FINDINGS: Stable left-sided consolidation and pleural effusion. Right lung clear. Correlate for underlying COPD . Apical pleural thickening. Heart mildly enlarged. Atherosclerotic change aorta. Diffuse osteopenia. Arthropathy of the AC joint with postsurgical change involving the right shoulder. Hypertrophic degen erative changes of the spine with scoliosis. IMPRESSION: 1. Left-sided consolidation/infiltrate and small pleural effusion stable.
--- NOTE | 2023-04-28 16:22 | P.DS ---
Providers Date of admission: 04/27/23 13:21 Expected date of discharge: 04/28/23 Attending physician: Guerda Kwok Consults: 04/27/23 13:19 Consult Physician Urgent Consulting Provider: Arnoldo Denise Consult Reason/Comments: L 7th, 8th, 9th, 10th, displaced rib fx Do you want consulting provider notified?: Yes 04/27/23 13:41 Consult Physician Urgent Consulting Provider: Carito Mcguire Consult Reason/Comments: displaced L 7th, 7th, 9th, 10th rib fx and possible hemothorax Do you want consulting provider notified?: Yes Primary care physician: Luis Zavaleta MD Hospital Course: Discharge diagnosis 1. Fall with Trauma to left rib cage and displaced left seventh, eighth, ninth, 10th rib fractures 2. Small left pleural effusion possibly representing a hemothorax and basilar consolidation Hospital course This is a 82-year-old male who fell about 4 days ago hitting his left rib cage on a metal guardrail on his truck while filling up his gas tank. Patient was found to have evidence of rib fractures on the left and a small pleural effusion that possibly could represent a hemothorax. Patient evaluated by pain service, pulmonary service and medicine service. Patient's pain is controlled. He is on room air. He has been up and ambulating. He is tolerating diet. He's afebrile. Pulmonary service has reviewed today's chest x-ray and have cleared patient for discharge. Patient is stable for discharge. Physician Flat Folder note has been reviewed by physician. Signing provider agrees with the documented findings, assessment, and plan of care. Patient Condition at Discharge: Stable Plan - Discharge Summary Discharge Rx Participant: Yes New Discharge Prescriptions: New HYDROcodone/APAP 10-325MG [[place] 10-325] 1 tab PO Q4HR PRN 7 Days #42 tab PRN Reason: Pain No Action Multivitamins, Thera [Multivitamin (formulary)] 1 tab PO DAILY Dutasteride [Avodart] 0.5 mg PO DAILY Gabapentin [Neurontin] 300 mg PO HS Celecoxib [CeleBREX] 200 mg PO DAILY@1400 Calcium Carbonate [Calcium] 600 mg PO DAILY traMADol HCL 50 mg PO DAILY Tamsulosin [Flomax] 0.4 mg PO HS Levothyroxine Sodium [Synthroid] 88 mcg PO AC-BRKFST traMADol HCL 50 mg PO DAILY PRN PRN Reason: Pain Discharge Medication List Dutasteride [Avodart] 0.5 mg PO DAILY 04/04/20 [History] Gabapentin [Neurontin] 300 mg PO HS 04/04/20 [History] Multivitamins, Thera [Multivitamin (formulary)] 1 tab PO DAILY 04/04/20 [History] Calcium Carbonate [Calcium] 600 mg PO DAILY 03/30/21 [History] Celecoxib [CeleBREX] 200 mg PO DAILY@1400 03/30/21 [History] Tamsulosin [Flomax] 0.4 mg PO HS 03/30/21 [History] traMADol HCL 50 mg PO DAILY 03/30/21 [History] HYDROcodone/APAP 10-325MG [[place] 10-325] 1 tab PO Q4HR PRN 7 Days #42 tab 04/27/23 [Rx] Levothyroxine Sodium [Synthroid] 88 mcg PO AC-BRKFST 04/27/23 [History] traMADol HCL 50 mg PO DAILY PRN 04/27/23 [History] Follow up Appointment(s)/Referral(s): Luis Zavaleta MD [Primary Care Provider] - 1-2 days Carito Mcguire MD [STAFF PHYSICIAN] - 1 Week Discharge Disposition: HOME SELF-CARE
== END 2023-04-28 17:55 | disposition home or self-care (01) | DRG 200 ==
LOC: EC 09:31 → 5NMEDONC 13:21
PROVIDERS: ADMIT Surgery Plastic and Reconstructive Surgery; ATTEND Surgery Plastic and Reconstructive Surgery
DX: S27.1XXA Traumatic hemothorax, initial encounter (principal); S22.42XA Multiple fractures of ribs, left side, initial encounter for closed fracture; W01.0XXA Fall on same level from slipping, tripping and stumbling without subsequent striking against object, initial encounter; Y92.524 Gas station as the place of occurrence of the external cause; I10 Essential (primary) hypertension; I77.811 Abdominal aortic ectasia; M19.041 Primary osteoarthritis, right hand; M19.042 Primary osteoarthritis, left hand; N40.0 Benign prostatic hyperplasia without lower urinary tract symptoms; E89.0 Postprocedural hypothyroidism; Z79.1 Long term (current) use of non-steroidal anti-inflammatories (NSAID); Z79.890 Hormone replacement therapy
CPT/HCPCS: 36415; 71046; 71250; 74150; 80053; 81001; 85025; 85610; 85730; 93005; 96372; 96374; 99285

== ENCOUNTER → 2023-11-05 | Outpatient (CLI) | payer MEDICARE ==
--- NOTE | 2023-11-05 11:39 | XR ---
EXAMINATION TYPE: XR knee 4V LT DATE OF EXAM: 11/05/2023 CLINICAL HISTORY: Arthralgia. TECHNIQUE: Three views of the left knee are obtained. COMPARISON: None. FINDINGS: There is no acute fracture/dislocation evident in left knee. Moderate to severe narrowing patellofemoral compartment suspected small to moderate size suprapatellar joint effusion. Moderate na rrowing medial tibiofemoral compartment. Meniscal calcification laterally is seen. Findings suggest u nderlying chondrocalcinosis. IMPRESSION: As above. Possible pseudogout.
== END | disposition home or self-care (01) ==
LOC: RADXRMAIN 10:54
PROVIDERS: ATTEND Internal Medicine
DX: M25.562 Pain in left knee (principal)

== ENCOUNTER → 2024-01-07 | Outpatient (CLI) | payer MEDICARE ==
[2024-01-07 13:13] LABS: Basophils # (A) 0.11 X 10*3/uL (0.00-0.10); Basophils % (A) 1.4 %; Eosinophils # (A) 0.51 X 10*3/uL (0.04-0.35); Eosinophils % (A) 6.4 %; HCT 39.9 % (39.6-50.0); HGB 11.7 g/dL (13.0-17.0); Lymphocytes # (A) 2.03 X 10*3/uL (0.90-5.00); Lymphocytes % (A) 25.5 %; MCH 24.6 pg (27.0-32.0); MCHC 29.3 g/dL (32.0-37.0); Monocytes # (A) 0.72 X 10*3/uL (0.20-1.00); NRBC Per 100 WBC 0 X 10*3/uL (0.00-0.01); Neutrophils # (A) 4.58 X 10*3/uL (1.80-7.70); Neutrophils % (A) 57.6 %; Platelet Count 274 X 10*3/uL (140-440); RBC 4.75 X 10*6/uL (4.40-5.60); RDW 16.4 % (11.5-14.5); WBC 7.96 X 10*3/uL (4.50-10.00)
[2024-01-07 15:20] LABS: VLDL Calculation 11.98 mg/dL (5.00-40.00)
[2024-01-07 15:24] LABS: ALT 12 U/L (10-49); AST 18 U/L (14-35); Albumin 3.8 g/dL (3.8-4.9); Alkaline Phosphatase 96 U/L (41-126); Blood Urea Nitrogen 21.2 mg/dL (9.0-27.0); Calcium 9.3 mg/dL (8.7-10.3); Carbon Dioxide 20.8 mmol/L (21.6-31.8); Chloride 104 mmol/L (96-109); Chol/HDL Ratio 3.13 Ratio; Globulin 3.8 g/dL (1.6-3.3); Glucose 115 mg/dL (70-110); LDL Cholesterol,Calculated 88.7 mg/dL (0.0-131.0); Potassium 4.7 mmol/L (3.5-5.5); Sodium 142 mmol/L (135-145); Total Bilirubin 0.6 mg/dL (0.3-1.2); Total Protein 7.6 g/dL (6.2-8.2)
== END | disposition home or self-care (01) ==
LOC: LABWHC1 09:18
PROVIDERS: ATTEND Internal Medicine
DX: Z00.00 Encounter for general adult medical examination without abnormal findings (principal); C73 Malignant neoplasm of thyroid gland
CPT/HCPCS: 36415; 80053; 80061; 83036; 84432; 84443; 85025; 86800

== ENCOUNTER → 2024-01-18 | Outpatient (CLI) | payer MEDICARE ==
[2024-01-18 15:23] VITALS: BP 140/81; PULSE 85; RESP 16; TEMP 97.7
--- NOTE | 2024-01-18 16:06 | P.SLEEP ---
History of Present Illness DATE: 01/18/2024 CONSULTATION/NEW PATIENT EVALUATION HISTORY OF PRESENT ILLNESS/SLEEP-WAKE EVALUATION: 83-year-old gentleman had b een evaluated in the sleep center for possible obstructive sleep apnea hypopnea syndrome. SLEEP SCHEDULE: Usually sleep schedule from 1111:30 PM to 6307 AM. FALLING ASLEEP: No problems with falling asleep. DURING SLEEP: Patient has loud snoring and witnessed episodes of stop breathing during the sleep by his . Positive history of kicking during sleep. No history of hypnogogical hallucinations, sleep paralysis, or cataplexy. DURING THE DAY/WAKE STATE: In the morning patient wake up tired, falling asleep during the day. [place] sleepiness scale is increased to 11. Patient may take up to 2 naps during the day around 2 PM. PAST MEDICAL HISTORY: Polyarthralgia rheumatica, aortic aneurysm of thoracic aorta, BPH, spinal stenosis, hypothyroidism. PAST SURGICAL HISTORY: Thyroidectomy for cancer, right shoulder arthroplasty. MEDICATIONS: Please see below. SOCIAL HISTORY: Please see below. FAMILY HISTORY: Emphysema. REVIEW OF SYSTEMS: Loud snoring, multiple awakenings from sleep, sleepiness during the day. No fevers. No double vision. No recent chest pain. No shortness of breath. No abdominal pain. No bleeding episodes. No blood in urine. No seizure episodes. PHYSICAL EXAMINATION: GENERAL: A pleasant patient without any distress. VITAL SIGNS: Please see below, weight 135.4 pounds, BMI 21.9. HEENT: PERRLA, EOMI. Evaluation of oropharynx showed tongue protrudes midline, low position of soft palate Mallampati 4. NECK: Supple. No JVD. Thyroid is not palpable. 14.5 inches in circumference. LUNGS: Clear to percussion and to auscultation. Good air exchange. No wheezing or rhonchi. HEART: S1, S2 regular. No murmurs, gallops or rubs. ABDOMEN: Soft and nontender. Bowel sounds are present. No organomegaly appreciated. EXTREMITIES: No clubbing or cyanosis. INTERNAL COMMUNICATIONS MANAGER: Awake, alert, and oriented x3. Cranial nerves 2 to 7 intact. There is no fasciculation or atrophy noted. No focal deficits observed. ASSESSMENT: 1. Loud snoring, witnessed episodes of stop breathing during the sleep, extremely low position of soft palate Mallampati 4, sleepiness. Obstructive sleep apnea hypopnea syndrome. 2. History of kicking during sleep, periodic limb movements. 3. Status post thyroidectomy for cancer. 4. Polyarthralgia rheumatica. 5 history of spinal stenosis. 6 . History of aortic aneurysm in thoracic area. PLAN: 1. Polysomnography for evaluation of patient's breathing during sleep and to check for possible periodic limb movements. 2. Following plan after reading sleep study. 3. Preferable position during sleep on the side. 4. No driving if patient feels any sleepiness. Patient is aware of civil and criminal liability for unsafe driving. 5. Sleep hygiene with regular sleep time for at least 7.5-8 hours. 6. Watching weight. Thank you very much for referring this patient for consultation. Sincerely, Gualberto Young MD, PhD, FAASM. Diplomat of [place] [employer], Sleep Medicine Board by [place] [employer] Studies Faculty Member of [facility] [place] Past Medical History Past Medical History: Osteoarthritis (OA), Prostate Disorder, Thyroid Disorder Additional Past Medical History / Comment(s): enlarged prostate, back pain , thyroid removed - cancer, skin cancer left upper lip,r shoulder arthroplasty, enlarged prostate, polyarthralgia rheumatic - pain issues, hands also deformed. History of Any Multi-Drug Resistant Organisms: None Reported Past Surgical History: Adenoidectomy, Back Surgery, Orthopedic Surgery, Tonsillectomy Additional Past Surgical History / Comment(s): February 2020- back surgery to remove a piece of bone, [place] knee arthroscopy, right shoulder arthorscopy, spinal stenosis - neurological surgery, aneurysm on the aorta (see Dr. Price), tonsillectomy, aDENOIDS REMOVED Past Anesthesia/Blood Transfusion Reactions: No Reported Reaction Past Psychological History: No Psychological Hx Reported Smoking Status: Never smoker Past Alcohol Use History: Rare Past Drug Use History: None Reported - Past Family History Mother Family Medical History: No Reported History Additional Family Medical History / Comment(s): FATHER SNORED AND HAD EMPHYSEMA Medications and Allergies Home Medications Medication Instructions Recorded Confirmed Type Dutasteride [Avodart] 0.5 mg PO DAILY 04/04/20 01/18/24 History Gabapentin [Neurontin] 300 mg PO HS 04/04/20 01/18/24 History Multivitamins, Thera [Multivitamin 1 tab PO DAILY 04/04/20 01/18/24 History (formulary)] Calcium Carbonate [Calcium] 600 mg PO DAILY 03/30/21 01/18/24 History Celecoxib [CeleBREX] 200 mg PO DAILY@1400 03/30/21 01/18/24 History Tamsulosin [Flomax] 0.4 mg PO HS 03/30/21 01/18/24 History traMADol HCL 50 mg PO DAILY 03/30/21 01/18/24 History HYDROcodone/APAP 10-325MG [[place] 1 tab PO Q4HR PRN 7 Days #42 tab 04/27/23 Rx 10-325] Levothyroxine Sodium [Synthroid] 88 mcg PO AC-BRKFST 04/27/23 01/18/24 History traMADol HCL 50 mg PO DAILY PRN 04/27/23 04/27/23 History Lidocaine 5% Patch [Lidoderm] 1 patch TOPICAL DAILY #3 patch 04/28/23 Rx Allergies Allergy/AdvReac Type Severity Reaction Status Date / Time No Known Allergies Allergy Verified 04/27/23 14:00 Physical Exam Vitals: Vital Signs Temp Pulse Resp BP Pulse Ox 01/18/24 14:48 97.7 F 85 16 140/81 98 Intake and Output 01/18/24 01/18/24 01/18/24 06:59 14:59 22:59 Other: Weight 61.348 kg Sleep Note - Sleep Data ESS Total: 11 - Sleep Note Sleep Note: Temperature: 97.7 F Pulse Rate: 85 Respiratory Rate: 16 Blood Pressure: 140/81 SpO2: 98 Height: 5 ft 5.7 in Weight: 61.348 kg BMI: Neck Circumference: 14.5
== END | disposition home or self-care (01) ==
LOC: 3 N SLEEP 14:32
PROVIDERS: ATTEND Internal Medicine
DX: G47.33 Obstructive sleep apnea (adult) (pediatric) (principal); R06.83 Snoring; G47.61 Periodic limb movement disorder; M35.3 Polymyalgia rheumatica; M48.00 Spinal stenosis, site unspecified; I71.23 Aneurysm of the descending thoracic aorta, without rupture
CPT/HCPCS: 99211

== ENCOUNTER 2024-01-25 19:35 | Outpatient (CLI) | payer MEDICARE ==
--- NOTE | 2024-02-01 14:01 | P.PCN ---
Description of Procedure: POLYSOMNOGRAPHY REPORT PROCEDURE(S)/DATE(S): Polysomnography 01/25/2024 CLINICAL: Patient has been seen in the sleep center for evaluation of obstructive sleep apnea-hypopnea syndrome. Please see my consultation. Sleep study has been done for evaluation of patient breathing during the sleep. PROCEDURE: The standard montage for clinical polysomnography included the electroencephalogram, the electrooculogram, the mentalis surface electromyography and Lead II cardiography. The respiratory battery consisted of measurements of nasal/buccal air flow, pressure transducer measurements from nose, thoracic and/or abdominal effort and intercostal surface electromyography. Video monitoring has been done to check for any parasomnia events. Nocturnal oxyhemoglobin saturations were obtained by finger oximetry. Step-hickman titration with positive airway pressure was utilized to control the respiratory events, if necessary. RESULTS: During the diagnostic sleep study sleep efficiency was slightly decreased to 83.5%. Latency to sleep onset was normal 11.5 min. Sleep architecture showed stage NI was short 3.7%, Delta sleep was absent 0%, REM sleep was slightly short 15.6%. Respiratory channel showed 0 obstructive apneas, 0 mixed apneas, 0 central apneas, 377 hypopneas with lowest oxygen level 60%. Total apnea hypopnea index was 67.0. Heart rate was in the range between 60 to and 86, average 74. EMG showed 0 periodic limb movements per hour with 0 micro-arousals per hour. IMPRESSIONS: 1. Severe obstructive sleep apnea hypopnea syndrome. 2. No significant periodic limb movements have been documented. Please see other impressions from consultation PLAN: 1. The patient will have PAP titration for correction of respiratory abnormalities during the sleep. 2. Sleep hygiene with regular time in bed for at least 7-1/2 hours. 3. No driving if feeling sleepiness. Thank you very much for allowing me to participate in the management of your patient. Sincerely, Gualberto Young MD, PhD, FAASM. Diplomat of [employer] [employer], Sleep Medicine Board by [employer] Oyster Shucker of [facility] [place]
== END 2024-01-26 06:00 | disposition home or self-care (01) ==
LOC: 3 N SLEEP 19:35
PROVIDERS: ATTEND Internal Medicine
DX: G47.33 Obstructive sleep apnea (adult) (pediatric) (principal)
CPT/HCPCS: 95810

== ENCOUNTER → 2024-02-02 | Outpatient (CLI) | payer MEDICARE ==
--- NOTE | 2024-02-02 20:04 | US ---
EXAMINATION TYPE: US thyroid st tissue head/neck DATE OF EXAM: 02/02/2024 COMPARISON: US CLINICAL INDICATION: Male, 83 years old with history of C73 MALIGNANT NEOPLASM OF THYROID GLAND; Thyr oidectomy- F/U GLAND SIZE: Right Lobe: Surgically absent Left Lobe: Surgically absent Isthmus Thickness: Surgically absent Bilateral neck scanned, no evidence of lymphadenopathy. No abnormality visualized within bilateral th yroid bed. IMPRESSION: No recurrent tissue within the thyroid bed.
== END | disposition home or self-care (01) ==
LOC: RADUSWWP 08:27
PROVIDERS: ATTEND Internal Medicine Endocrinology, Diabetes & Metabolism
DX: C73 Malignant neoplasm of thyroid gland (principal); E89.0 Postprocedural hypothyroidism
CPT/HCPCS: 76536

== ENCOUNTER 2024-02-19 18:48 | Outpatient (CLI) | payer MEDICARE ==
--- NOTE | 2024-02-22 15:55 | P.PCN ---
Description of Procedure: POLYSOMNOGRAPHY REPORT PROCEDURE(S)/DATE(S): Polysomnography 02/19/2024 CLINICAL: Patient has been seen in the sleep center for evaluation of obstructive sleep apnea-hypopnea syndrome. Please see my consultation. Sleep study has been done for evaluation of patient breathing during the sleep. PROCEDURE: The standard montage for clinical polysomnography included the electroencephalogram, the electrooculogram, the mentalis surface electromyography and Lead II cardiography. The respiratory battery consisted of measurements of nasal/buccal air flow, pressure transducer measurements from nose, thoracic and/or abdominal effort and intercostal surface electromyography. Video monitoring has been done to check for any parasomnia events. Nocturnal oxyhemoglobin saturations were obtained by finger oximetry. Step-hickman titration with positive airway pressure was utilized to control the respiratory events, if necessary. RESULTS: During the diagnostic sleep study sleep efficiency was decreased to 78.2%. Latency to sleep onset was normal 14.5 min. Sleep architecture showed stage NI was slightly short 4.5%, Delta sleep was short 3.1%, REM sleep was short 9.5%. Respiratory channel showed 217 obstructive apneas, 0 mixed apneas, 0 central apneas, 31 hypopneas with lowest oxygen level 82%. Total apnea hypopnea index was 51.5. Heart rate was in the range between 60 and 82, average 72. EMG showed 5.8 periodic limb movements per hour with 2.3 micro-arousals per hour. IMPRESSIONS: 1. Severe obstructive sleep apnea hypopnea syndrome. 2. No significant periodic limb movements have been documented. Please see other impressions from consultation PLAN: 1. The patient will have PAP titration for correction of respiratory abnormalities during the sleep. 2. Sleep hygiene with regular time in bed for at least 7-1/2 hours. 3. No driving if feeling sleepiness. Thank you very much for allowing me to participate in the management of your patient. Sincerely, Gualberto Young MD, PhD, FAASM. Diplomat of [place] [employer] Medicine, Sleep Medicine Board by [place] [employer] of Internal Medicine Bed Laborer of [facility] [place] cc: Luis Zavaleta DO
== END 2024-02-20 05:46 | disposition home or self-care (01) ==
LOC: 3 N SLEEP 18:48
PROVIDERS: ATTEND Internal Medicine
DX: G47.33 Obstructive sleep apnea (adult) (pediatric) (principal)
CPT/HCPCS: 95811

== ENCOUNTER → 2024-06-28 | Outpatient (CLI) | payer MEDICARE ==
[2024-06-28 16:09] VITALS: BP 153/80; PULSE 84; RESP 16; TEMP 97.6
--- NOTE | 2024-06-28 16:49 | P.PROGSL ---
Subjective DATE: 06/28/2024 FOLLOW UP VISIT. Patient with obstructive sleep apnea hypopnea syndrome return to sleep center for follow-up visit. Recently patient had sleep study which documented obstructive sleep apnea hypopnea syndrome. Patient was initiated on PAP therapy and today is first visit after treatment was started. Patient was able to use PAP equipment every night for the whole night. The patient does not have significant problems with the mask, PAP pressure and humidification. Patient is using fullface mask and feels that his mouth is dry. Probably he opens his mouth during sleep. [place] sleepiness scale is 10. I checked information from PAP unit. PAP unit pressure maximal inspiratory pressure 23, minimal expiratory pressure f or, average pressure 15.5/11.5, pressure support 4 cm H2O. Usage is 97% and 77% for more then 4 hours, average 5 hours per night. Leak is an extremely high range of 59.8 l/m. Apnea Hypopnea Index is an extremely high range of 59.3, which includes 1.7 centrals, 6.3 obstructive and 50.9 unknown. MEDICATIONS: Please see below During physical exam: GENERAL: A pleasant patient without any distress. VITAL SIGNS: Please see below. HEENT: PERRLA, EOMI.low position of soft palate, Mallapati 4 . NECK: Supple. No JVD. LUNGS: Clear to percussion and to auscultation. Good air exchange. No wheezing or rhonchi. HEART: S1, S2 regular. ABDOMEN: Soft and nontender.[] EXTREMITIES: No clubbing or cyanosis. REGIONAL EDUCATION MANAGER: Awake, alert, and oriented x3. No focal deficit. Impressions: 1. Severe obstructive sleep apnea-hypopnea syndrome with original apnea hypopnea index 67.0. Patient demonstrated great compliance with treatment. Reading from BiPAP unit showed high leak and high apnea hypopnea index. 2. Status post thyroidectomy for cancer. 3. Polyarthralgia rheumatica. 4. History of spinal stenosis. 5. History of aortic aneurysm in thoracic area. Prescription for chinstrap to prevent a leak. I changed parameters of BiPAP unit to the pressure 15/ 11 cm of water and ramp started from EPAP 6 cm of water. Plan: 1. Continue using PAP equipment every night for the whole night. 2. To change air filter at least 1-2 times per month. 3. PAP unit should stay lower then position of the head. 4. Advised patient to remove all remaining water from humidifier canister daily and make it dry after each usage. Refill canister with fresh distilled water before each usage. 5. Sleep hygiene with regular time in bed for at least 8 hours. 6. Precautions related to driving. No driving if feel any sleepiness. 7. I will maintain prescription for PAP supplies including mask, tube, filters. 8. Follow up visit in 2 months or earlier if patient has any problems. 9. Watching weight. Thank you very much for allowing me to participate in the management of your patient. Gualberto Young MD, PhD, FAASM. Diplomat of [place] [employer] of Sleep Medicine, Sleep Medicine Board by [place] [employer] of Internal Medicine Suede Cleaner of [facility] [place] cc: Luis Zavaleta DO, Arjun Chavez DO Objective - Vital Signs Vital Signs: Vital Signs Temp 97.6 F 06/28/24 16:06 Pulse 84 06/28/24 16:06 Resp 16 06/28/24 16:06 BP 153/80 06/28/24 16:06 Pulse Ox 97 06/28/24 16:06 FiO2 Intake & Output 06/27/24 06/28/24 06/28/24 18:59 06:59 18:59 Weight 64.637 kg Home Medications: Home Medications Medication Instructions Recorded Confirmed Type Dutasteride [Avodart] 0.5 mg PO DAILY 04/04/20 01/18/24 History Gabapentin [Neurontin] 300 mg PO HS 04/04/20 01/18/24 History Multivitamins, Thera [Multivitamin 1 tab PO DAILY 04/04/20 01/18/24 History (formulary)] Calcium Carbonate [Calcium] 600 mg PO DAILY 03/30/21 01/18/24 History Celecoxib [CeleBREX] 200 mg PO DAILY@1400 03/30/21 01/18/24 History Tamsulosin [Flomax] 0.4 mg PO HS 03/30/21 01/18/24 History traMADol HCL 50 mg PO DAILY 03/30/21 01/18/24 History HYDROcodone/APAP 10-325MG [[place] 1 tab PO Q4HR PRN 7 Days #42 tab 04/27/23 Rx 10-325] Levothyroxine Sodium [Synthroid] 88 mcg PO AC-BRKFST 04/27/23 01/18/24 History traMADol HCL 50 mg PO DAILY PRN 04/27/23 04/27/23 History Lidocaine 5% Patch [Lidoderm] 1 patch TOPICAL DAILY #3 patch 04/28/23 Rx
== END ==
LOC: 3 N SLEEP 15:39
PROVIDERS: ATTEND Internal Medicine
CPT/HCPCS: 99212

== ENCOUNTER → 2024-08-30 | Outpatient (CLI) | payer MEDICARE ==
[2024-08-30 12:10] VITALS: BP 143/87; PULSE 66; RESP 12; TEMP 97.9
--- NOTE | 2024-08-30 12:37 | P.PROGSL ---
Subjective DATE: 08/30/2024 FOLLOW UP VISIT. Patient with obstructive sleep apnea hypopnea syndrome return to sleep center for follow-up visit. Information from previous visit have been reviewed. Patient is using PAP equipment every night for the whole night, getting PAP supplies in time. The patient does not have significant problems with the mask, PAP unit and humidification. [place] sleepiness scale is 8, which is normal. I checked information from PAP unit. BPAP unit pressure 15/11 cm H2O. Usage is 80% for more then 4 hours, average 5.3 hours per night. Leak is extremely high 70 l/m. Apnea Hypopnea Index is extremely high 36.1, but better than during previous visit. MEDICATIONS have been reviewed, please see below. During physical exam: GENERAL: A pleasant patient without any distress. VITAL SIGNS: Please see below, weight is 146 lbs. HEENT: PERRLA, EOMI.low position of soft palate, Mallapati 4 . NECK: Supple. No JVD. LUNGS: Clear to percussion and to auscultation. Good air exchange. No wheezing or rhonchi. HEART: S1, S2 regular. ABDOMEN: Soft and nontender.[] EXTREMITIES: No clubbing or cyanosis. INTERNATIONAL TRAVEL CONSULTANT: Awake, alert, and oriented x3. No focal deficit. Impressions: 1. Severe obstructive sleep apnea-hypopnea syndrome, apnea hypopnea index 67.0. Patient demonstrated good compliance with treatment, benefiting from treatment, but still very high apnea-hypopnea index and very high leak from the mask. 2. Status post surgical treatment for skin cancer of the nose recently. 3. Status post thyroidectomy for cancer. 4. Polyarthralgia rheumatica. 5. History of spinal stenosis. 6. History of aortic aneurysm in thoracic area. Prescription for chinstrap again, patient did not received chinstrap. I increased pressure in BiPAP unit to 17/ 13 cm of water. Plan: 1. Continue using PAP equipment every night for the whole night. 2. Sleep hygiene with regular time in bed for at least 7.5-8 hours 3. PAP unit should stay lower then position of the head. 4. Advised patient to remove all remaining water from humidifier canister daily and make it dry after each usage. Refill canister with fresh distilled water before each usage. 5. Watching weight. 6. Precautions related to driving. No driving if feel any sleepiness. 7. I will maintain prescription for PAP supplies including mask, tube, filters. 8. Follow up visit in 2 months or earlier if patient has any problems. Thank you very much for allowing me to participate in the management of your patient. Gualberto Young MD, PhD, FAASM. Diplomat of [place] Board of Sleep Medicine, Sleep Medicine Board by [employer] [employer] Internal Medicine Streets [employer] Buildings Decorator of [facility] [place] Objective - Vital Signs Vital Signs: Vital Signs Temp 97.9 F 08/30/24 12:07 Pulse 66 08/30/24 12:07 Resp 12 08/30/24 12:07 BP 143/87 08/30/24 12:07 Pulse Ox 98 08/30/24 12:07 FiO2 Intake & Output 08/29/24 08/30/24 08/30/24 18:59 06:59 18:59 Weight 66.224 kg Home Medications: Home Medications Medication Instructions Recorded Confirmed Type Dutasteride [Avodart] 0.5 mg PO DAILY 04/04/20 01/18/24 History Gabapentin [Neurontin] 300 mg PO HS 04/04/20 01/18/24 History Multivitamins, Thera [Multivitamin 1 tab PO DAILY 04/04/20 01/18/24 History (formulary)] Calcium Carbonate [Calcium] 600 mg PO DAILY 03/30/21 01/18/24 History Celecoxib [CeleBREX] 200 mg PO DAILY@1400 03/30/21 01/18/24 History Tamsulosin [Flomax] 0.4 mg PO HS 03/30/21 01/18/24 History traMADol HCL 50 mg PO DAILY 03/30/21 01/18/24 History HYDROcodone/APAP 10-325MG [[place] 1 tab PO Q4HR PRN 7 Days #42 tab 04/27/23 Rx 10-325] Levothyroxine Sodium [Synthroid] 88 mcg PO AC-BRKFST 04/27/23 01/18/24 History traMADol HCL 50 mg PO DAILY PRN 04/27/23 04/27/23 History Lidocaine 5% Patch [Lidoderm] 1 patch TOPICAL DAILY #3 patch 04/28/23 Rx
== END ==
LOC: 3 N SLEEP 11:15
PROVIDERS: ATTEND Internal Medicine
DX: G47.33 Obstructive sleep apnea (adult) (pediatric) (principal); M35.3 Polymyalgia rheumatica; Z85.828 Personal history of other malignant neoplasm of skin; Z98.890 Other specified postprocedural states; Z85.850 Personal history of malignant neoplasm of thyroid; Z86.69 Personal history of other diseases of the nervous system and sense organs; Z99.89 Dependence on other enabling machines and devices
CPT/HCPCS: 99212

== ENCOUNTER → 2024-11-01 | Outpatient (CLI) | payer MEDICARE ==
[2024-11-01 11:42] VITALS: BP 136/83; PULSE 78; RESP 16; TEMP 97.4
--- NOTE | 2024-11-01 12:12 | P.PROGSL ---
Subjective DATE: 11/01/2024 FOLLOW UP VISIT. Patient with obstructive sleep apnea hypopnea syndrome return to sleep center for follow-up visit. Information from previous visit have been reviewed. Patient is using PAP equipment every night for the whole night, getting PAP supplies in time. Patient continued to have leak from his fullface mask. [place] sleepiness scale is 4, which is normal. I checked information from PAP unit. BPAP unit pressure 17/13 cm H2O. Usage is 100% for more then 4 hours, average 4.8 hours per night. Leak is in extremely high range 83 l/m. Apnea Hypopnea Index is significantly increased to 32.4, which is only slightly better than during previous visit when it was 36.1. MEDICATIONS have been reviewed, please see below. During physical exam: GENERAL: A pleasant patient without any distress. VITAL SIGNS: Please see below, weight is 144 lbs. HEENT: PERRLA, EOMI.low position of soft palate, Mallapati 4 . NECK: Supple. No JVD. LUNGS: Clear to percussion and to auscultation. Good air exchange. No wheezing or rhonchi. HEART: S1, S2 regular. ABDOMEN: Soft and nontender.[] EXTREMITIES: No clubbing or cyanosis. COOLING TOWER OPERATOR: Awake, alert, and oriented x3. No focal deficit. Impressions: 1. Obstructive sleep apnea-hypopnea syndrome in severe range with apnea hypopnea index 67.0. Patient demonstrated great compliance with treatment, benefiting from treatment, but still high apnea hypopnea index and very high leak from the mask. 2. Status post thyroidectomy for cancer. 3. Status post surgical treatment for skin cancer of the nose recently. 4. Polyarthralgia rheumatica. 5. History of spinal stenosis. 6. History of aortic aneurysm and thoracic area. We discussed option to use nasal mask and nasal pillow mask with chinstrap and nasal strips. Plan: 1. Continue using PAP equipment every night for the whole night. 2. Sleep hygiene with regular time in bed for at least 7.5-8 hours 3. PAP unit should stay lower then position of the head. 4. Advised patient to remove all remaining water from humidifier canister daily and make it dry after each usage. Refill canister with fresh distilled water before each usage. 5. Watching weight. 6. Precautions related to driving. No driving if feel any sleepiness. 7. I will maintain prescription for PAP supplies including mask, tube, filters. 8. Follow up visit in 2 months or earlier if patient has any problems. Thank you very much for allowing me to participate in the management of your patient. Gualberto Yuong MD, PhD, FAASM. Diplomat of [place] Board of Sleep Medicine, Sleep Medicine Board by [employer] Board of Internal Medicine Powder And Primer Canning Leader of [facility] [place] Objective - Vital Signs Vital Signs: Vital Signs Temp 97.4 F L 11/01/24 11:41 Pulse 78 11/01/24 11:41 Resp 16 11/01/24 11:41 BP 136/83 11/01/24 11:41 Pulse Ox 97 11/01/24 11:41 FiO2 Home Medications: Home Medications Medication Instructions Recorded Confirmed Type Dutasteride [Avodart] 0.5 mg PO DAILY 04/04/20 11/01/24 History Gabapentin [Neurontin] 300 mg PO HS 04/04/20 11/01/24 History Multivitamins, Thera [Multivitamin 1 tab PO DAILY 04/04/20 11/01/24 History (formulary)] Calcium Carbonate [Calcium] 600 mg PO DAILY 03/30/21 11/01/24 History Celecoxib [CeleBREX] 200 mg PO DAILY@1400 03/30/21 11/01/24 History Tamsulosin [Flomax] 0.4 mg PO HS 03/30/21 11/01/24 History traMADol HCL 50 mg PO DAILY 03/30/21 11/01/24 History HYDROcodone/APAP 10-325MG [[place] 1 tab PO Q4HR PRN 7 Days #42 tab 04/27/23 Rx 10-325] Levothyroxine Sodium [Synthroid] 88 mcg PO AC-BRKFST 04/27/23 11/01/24 History traMADol HCL 50 mg PO DAILY PRN 04/27/23 04/27/23 History Lidocaine 5% Patch [Lidoderm] 1 patch TOPICAL DAILY #3 patch 04/28/23 Rx
== END ==
LOC: 3 N SLEEP 11:27
PROVIDERS: ATTEND Internal Medicine
DX: G47.33 Obstructive sleep apnea (adult) (pediatric) (principal); M35.3 Polymyalgia rheumatica; Z86.79 Personal history of other diseases of the circulatory system; Z87.39 Personal history of other diseases of the musculoskeletal system and connective tissue; Z90.89 Acquired absence of other organs
CPT/HCPCS: 99212

== ENCOUNTER → 2024-12-27 | Outpatient (CLI) | payer MEDICARE ==
[2024-12-27 13:27] VITALS: BP 148/77; PULSE 72; RESP 16; TEMP 98.2
--- NOTE | 2024-12-27 13:42 | P.PROGSL ---
Subjective DATE: 12/27/2024 FOLLOW UP VISIT. Patient with obstructive sleep apnea hypopnea syndrome return to sleep center for follow-up visit. Information from previous visit have been reviewed. Patient is using PAP equipment every night for the whole night, getting PAP supplies in time. The patient does not have significant problems with the mask, PAP unit and humidification. [place] sleepiness scale is 6, which is in normal range. I checked information from PAP unit. BPAP unit pressure 17/13 cm H2O. Usage is 100% and 70% for more then 4 hours, average 4 hours per night. Leak is slightly increased to 27.0 l/m. Apnea Hypopnea Index is significantly increased to 27.1, which include central apnea hypopnea index 1.5 and obstructive sleep apnea hypopnea index 23.9. Slightly better than during previous visit when it was 32.4. MEDICATIONS have been reviewed, please see below. During physical exam: GENERAL: A pleasant patient without any distress. VITAL SIGNS: Please see below, weight is 146 lbs. HEENT: PERRLA, EOMI.low position of soft palate, Mallapati 4 . NECK: Supple. No JVD. LUNGS: Clear to percussion and to auscultation. Good air exchange. No wheezing or rhonchi. HEART: S1, S2 regular. ABDOMEN: Soft and nontender.[] EXTREMITIES: No clubbing or cyanosis. SPRING WINDER: Awake, alert, and oriented x3. No focal deficit. Impressions: 1. Obstructive sleep apnea-hypopnea syndrome. Patient demonstrated great compliance with treatment, benefiting from treatment. Reading from the BiPAP unit showed high apnea hypopnea index related to obstructive events. 2. Post thyroidectomy for cancer. 3. Status post surgical treatment for skin cancer in the nose recently. 4. Polyarthralgia rheumatica. 5. History of spinal stenosis. 6. History of aortic aneurysm in thoracic area. I will change parameters in BiPAP unit to auto BiPAP with maximal inspiratory pressure 21 and minimal expiratory pressure 10 cm of water. Plan: 1. Continue using PAP equipment every night for the whole night. 2. Sleep hygiene with regular time in bed for at least 7.5-8 hours 3. PAP unit should stay lower then position of the head. 4. Advised patient to remove all remaining water from humidifier canister daily and make it dry after each usage. Refill canister with fresh distilled water before each usage. 5. Watching weight. 6. Precautions related to driving. No driving if feel any sleepiness. 7. I will maintain prescription for PAP supplies including mask, tube, filters. 8. Follow up visit in 1 months or earlier if patient has any problems. Thank you very much for allowing me to participate in the management of your patient. Gualberto Young MD, PhD, FAASM. Diplomat of [employer] [employer] Sleep Medicine, Sleep Medicine Board by [employer] Medicine Optical Manager of [facility] [place] Objective - Vital Signs Vital Signs: Vital Signs Temp 98.2 F 12/27/24 13:26 Pulse 72 12/27/24 13:26 Resp 16 12/27/24 13:26 BP 148/77 12/27/24 13:26 Pulse Ox 98 12/27/24 13:26 FiO2 Intake & Output 12/26/24 12/27/24 12/27/24 18:59 06:59 18:59 Weight 66.224 kg Home Medications: Home Medications Medication Instructions Recorded Confirmed Type Dutasteride [Avodart] 0.5 mg PO DAILY 04/04/20 11/01/24 History Gabapentin [Neurontin] 300 mg PO HS 04/04/20 11/01/24 History Multivitamins, Thera [Multivitamin 1 tab PO DAILY 04/04/20 12/27/24 History (formulary)] Calcium Carbonate [Calcium] 600 mg PO DAILY 03/30/21 11/01/24 History Celecoxib [CeleBREX] 200 mg PO DAILY@1400 03/30/21 11/01/24 History Tamsulosin [Flomax] 0.4 mg PO HS 03/30/21 11/01/24 History traMADol HCL 50 mg PO DAILY 03/30/21 11/01/24 History HYDROcodone/APAP 10-325MG [[place] 1 tab PO Q4HR PRN 7 Days #42 tab 04/27/23 Rx 10-325] Levothyroxine Sodium [Synthroid] 88 mcg PO AC-BRKFST 04/27/23 11/01/24 History traMADol HCL 50 mg PO DAILY PRN 04/27/23 04/27/23 History Lidocaine 5% Patch [Lidoderm] 1 patch TOPICAL DAILY #3 patch 04/28/23 Rx
== END ==
LOC: 3 N SLEEP 13:03
PROVIDERS: ATTEND Internal Medicine
DX: G47.33 Obstructive sleep apnea (adult) (pediatric) (principal); M35.3 Polymyalgia rheumatica; Z90.89 Acquired absence of other organs; Z87.09 Personal history of other diseases of the respiratory system; Z87.39 Personal history of other diseases of the musculoskeletal system and connective tissue; Z86.79 Personal history of other diseases of the circulatory system; Z99.89 Dependence on other enabling machines and devices; Z85.850 Personal history of malignant neoplasm of thyroid; Z85.820 Personal history of malignant melanoma of skin
CPT/HCPCS: 99212

== ENCOUNTER → 2025-01-01 | Outpatient (CLI) | payer MEDICARE ==
[2025-01-01 14:42] LABS: Basophils # (A) 0.07 X 10*3/uL (0.00-0.10); Eosinophils # (A) 0.45 X 10*3/uL (0.04-0.35); Eosinophils % (A) 6.2 %; HCT 39.2 % (39.6-50.0); HGB 11.9 g/dL (13.0-17.0); Lymphocytes # (A) 1.97 X 10*3/uL (0.90-5.00); Lymphocytes % (A) 27.1 %; MCH 26.7 pg (27.0-32.0); MCHC 30.4 g/dL (32.0-37.0); MCV 88.1 FL (80.0-97.0); Mean Platelet Volume 9.4 FL (9.5-12.2); Monocytes # (A) 0.65 X 10*3/uL (0.20-1.00); NRBC Per 100 WBC 0 X 10*3/uL (0.00-0.01); Neutrophils % (A) 56.4 %; Platelet Count 269 X 10*3/uL (140-440); RBC 4.45 X 10*6/uL (4.40-5.60); RDW 15.9 % (11.5-14.5); WBC 7.26 X 10*3/uL (4.50-10.00)
[2025-01-01 15:36] LABS: BUN/Creat Ratio 26.78 Ratio (12.00-20.00); Blood Urea Nitrogen 24.1 mg/dL (9.0-27.0); Chloride 107 mmol/L (96-109); Chol/HDL Ratio 3.22 Ratio; Glucose 99 mg/dL (70-110); LDL Cholesterol,Calculated 92.4 mg/dL (0.0-131.0); Magnesium 2.1 mg/dL (1.5-2.4); Potassium 4.4 mmol/L (3.5-5.5); Sodium 142 mmol/L (135-145); VLDL Calculation 9.66 mg/dL (5.00-40.00)
[2025-01-01 15:37] LABS: ALT 14 U/L (10-49); AST 17 U/L (14-35); Albumin 3.6 g/dL (3.8-4.9); Albumin/Globulin Ratio 1.09 Ratio (1.60-3.17); Alkaline Phosphatase 86 U/L (41-126); Calcium 8.8 mg/dL (8.7-10.3); Carbon Dioxide 23.6 mmol/L (21.6-31.8); Globulin 3.3 g/dL (1.6-3.3); Total Bilirubin 0.5 mg/dL (0.3-1.2); Total Protein 6.9 g/dL (6.2-8.2)
== END | disposition home or self-care (01) ==
LOC: LABWHC1 08:34
PROVIDERS: ATTEND Internal Medicine Endocrinology, Diabetes & Metabolism
DX: C73 Malignant neoplasm of thyroid gland (principal); I10 Essential (primary) hypertension; R73.9 Hyperglycemia, unspecified
CPT/HCPCS: 36415; 80053; 80061; 83036; 83735; 84432; 84443; 85025; 86800

== ENCOUNTER → 2025-01-08 | Outpatient (CLI) | payer MEDICARE ==
--- NOTE | 2025-01-08 12:31 | US ---
EXAMINATION TYPE: US thyroid st tissue head/neck DATE OF EXAM: 01/08/2025 COMPARISON: 02/02/2024 CLINICAL INDICATION: Male, 84 years old with history of C73 MAL NEOPLASM THYROID; F/U thyroidectomy TECHNIQUE: Grayscale and color Doppler imaging of the thyroid gland. FINDINGS: GLAND SIZE: Right Lobe: Surgically absent Left Lobe: Surgically absent Isthmus Thickness: Surgically absent NODULES RIGHT: # of nodules measured on right: 0 LEFT: # of nodules measured on left: 0 ISTHMUS: # of nodules measured in the isthmus: 0 Bilateral neck scanned, no evidence of lymphadenopathy. Nail Assembly Machine Operator notes: Normal thyroid beds bilaterally post thyroidectomy, no abnormality visualized at t his time. IMPRESSION: Status post thyroidectomy. No residual or abnormal tissue identified within the thyroidectomy bed. [facility], , 01/08/2025 12:29 PM
== END | disposition home or self-care (01) ==
LOC: RADUSWWP 11:05
PROVIDERS: ATTEND Urology
DX: C73 Malignant neoplasm of thyroid gland (principal); Z90.89 Acquired absence of other organs
CPT/HCPCS: 76536